=== PATIENT | female | born 1930 | race Caucasian/White ===

== ENCOUNTER 2016-11-30 07:29 | Emergency (ER) | payer MEDICARE, OTHER ==
[~2016-11-30 07:29] MED LIST: ACET500CAP PO; ASAB PO; ASACOL PO; BENTYL10 PO; COMP10B PO; CONSTULOSE PO; COZ50 PO; CRESTOR10 PO; ENULOSE PO; FERROUS SULFATE PO; FLECAINIDE50 MG PO; HALF81 PO; IMBRU140C PO; IMDUR30 PO; L20 PO; LACT30UDL PO; LACTULOSE; LACTULOSE PO; LIBRAX PO; LIPITOR10 PO; LOP25 PO; MCZ125 PO; METPAKSF PO; MICARDIS20 MG PO; MIRALAXPKT PO; NITROBID PO; NITROBID2 PO; NITROSTAT0.4 MG SL; PLAVIX PO; POTASSIUM PO; PRILO PO; PRILOSEC OTC20 MG PO; PROTONIX PO; PROVHFA INH; RAN500 PO; SLO FE PO; SLOW FE160 MG PO; SLOW IRON OR; TAMBO50 PO; VALTREX1 GM PO; ZOFRAN8 PO; [UNRECOGNIZED DRUG - OTHER]; [UNRECOGNIZED DRUG - OTHER]; [UNRECOGNIZED DRUG - OTHER] PO
[2016-11-30 08:22] LABS: BASOPHILS 0.1 %; BASOPHILS ABSOLUTE 0.03 10/3/uL (0.0-0.16); EOSINOPHILS 0.2 %; EOSINOPHILS ABSOLUTE 0.05 10/3/uL (0.0-0.53); HEMOGLOBIN 9.2 g/dL (12.0-16.0); IMMATURE GRANULOCYTES 0.2 %; LYMPHOCYTES ABSOLUTE 22.39 10/3/uL (0.67-4.30); MEAN CORPUS HGB CONC 32.4 g/dL (32.0-36.0); MEAN CORPUSCULAR HEMOGLOB 28.9 pg (26.0-34.0); MEAN PLATELET VOLUME 10.8 fL (9.2-13.0); MONOCYTES 1.4 %; MONOCYTES ABSOLUTE 0.33 10/3/uL (0.21-1.20); NEUTROPHILS 6.1 %; NEUTROPHILS ABSOLUTE 1.49 10/3/uL (2.02-8.40); PLATELET COUNT 88 10/3/uL (150-400); RBC DISTRIBUTION WIDTH 15.6 % (12.0-16.0); RED CELL COUNT 3.18 10/6/uL (4.0-5.6)
[2016-11-30 08:24] LABS: ER CBC TAT 0 Hrs 07 Mins; HEMATOCRIT 28.4 % (36.0-48.0); IMMATURE GRANULOCYTES ABSOLUTE 0.05 10/3/uL (0.0-0.11); MANUAL DIFF NO %; MEAN CORPUSCULAR VOLUME 89.3 fL (80-100); WHITE BLOOD CELLS 24.3 10/3/uL (4.5-10.5)
[2016-11-30 08:32] LABS: INTERNATIONAL NORMAL RATI 1.2 UNITS (-); PARTIAL THROMBO TIME 37.6 SEC (22.5-37.2); PROTIME (NOT ORD) 15.4 SEC (12.0-14.5)
[2016-11-30 08:36] LABS: CALCIUM, SERUM 7.8 MG/DL (8.5-10.4); CHEST PAIN PROFILE TAT 0 Hrs 19 Mins; CHLORIDE, SERUM 107 MMOL/L (96-112); CO2 (CARBON DIOXIDE) 29 MMOL/L (24-34); GFR AFRICAN AMERICAN 33 ML/MIN (>=60); GFR NON AFRICAN AMERICAN 29 ML/MIN (>=60); GLUCOSE, SERUM 79 MG/DL (60-99); POTASSIUM, SERUM 4.1 MMOL/L (3.5-5.3); TROPONIN I <0.02 NG/ML (<0.05)
[2016-11-30 08:39] LABS: BUN (BLOOD UREA NITROGEN) 20 MG/DL (6-23); SODIUM, SERUM 140 MMOL/L (135-148)
[2016-11-30 08:58] LABS: ER DIFF TAT 0 Hrs 41 Mins; LYMPHOCYTES 98 %; LYMPHOCYTES ABSOLUTE (CALC) 23.81 10/3/uL (0.67-4.30); MONOCYTES 1 %; MONOCYTES ABSOLUTE (CALC) 0.24 10/3/uL (0.21-1.20); NEUTROPHILS ABSOLUTE (CALC) 0.24 10/3/uL (2.02-8.40); PLATELET ESTIMATE DEC (ADEQUATE); SEGMENTED NEUTROPHIL (0) 1 %; TOTAL NUCLEATED CELLS 100
[2016-11-30 09:00] LABS: ACANTHOCYTES FEW (3-10/OIF)
[2016-11-30 09:01] LABS: OVALOCYTES 1+ (3-10/OIF) (0-2/OIF)
[2016-11-30 09:07] LABS: SMUDGE CELLS FEW
[2016-12-01] MEDS ORDERED: LIBRAX PO (14:28)
[2016-12-01] MEDS ORDERED: FLECAINIDE50 MG PO (14:28)
[2016-12-01] MEDS ORDERED: L20 PO (14:29)
[2016-12-01] MEDS ORDERED: IMDUR30 PO (14:29)
[2016-12-01] MEDS ORDERED: IMBRU140C PO (14:29)
[2016-12-01] MEDS ORDERED: LOP25 PO (14:30)
[2016-12-01] MEDS ORDERED: COZ50 PO (14:30)
[2016-12-01] MEDS ORDERED: METRONIDAZOLE 0.75% V (14:31)
[2016-12-01] MEDS ORDERED: PROTONIX PO (14:32)
[2016-12-01] MEDS ORDERED: ACET500CAP PO (14:34)
== END 2016-11-30 11:32 | disposition home or self-care (01) ==
LOC: ER 07:29
PROVIDERS: Emergency Medicine
DX: R07.89 Other chest pain (principal); C94.80 Other specified leukemias not having achieved remission; L89.152 Pressure ulcer of sacral region, stage 2; I25.2 Old myocardial infarction; I48.91 Unspecified atrial fibrillation; I12.9 Hypertensive chronic kidney disease with stage 1 through stage 4 chronic kidney disease, or unspecified chronic kidney disease; N18.9 Chronic kidney disease, unspecified; Z95.5 Presence of coronary angioplasty implant and graft; Z88.8 Allergy status to other drugs, medicaments and biological substances; Z91.041 Radiographic dye allergy status; Z91.013 Allergy to seafood; Z88.5 Allergy status to narcotic agent; Z88.6 Allergy status to analgesic agent; Z88.1 Allergy status to other antibiotic agents; Z79.82 Long term (current) use of aspirin; Z79.899 Other long term (current) drug therapy
CPT/HCPCS: 71010; 80048; 83735; 84484; 85025; 85610; 85730; 93005; 99285; A9270-GY

== ENCOUNTER 2016-12-01 12:07 | Inpatient (IN) | payer MEDICARE, OTHER ==
--- NOTE | ~2016-12-01 | CN ---
Consultation Report [place] [address] [facility] [place]. [address] NAME: LORETTA DUVAL : 29 STATUS : DIS IN PAT#: [id number] AGE: 86 ADM/REG DATE : 12/01/16 MR#: [id number] REPORT SERV DATE: 12/09/16 DICTATED BY: CHEO GANDHI DATE: 12/09/16 REPORT STATUS : Draft TRANSCRIBED BY: MODAsuncion DATE: 12/09/16 CONSULTATION DATE OF CONSULTATION: CVD PHYSICIAN: Rich Waldrop M.D. REASON FOR CONSULTATION: Mrs. Loretta Duval is an 86-year-old female who is referred for treatment of atrial fibrillation. HISTORY OF PRESENT ILLNESS: Mrs. Loretta Duval was just seen last week and was discharged on 12/06/2016 status post left hip fracture with total hip replacement. Postoperatively, she developed UTI and now sepsis. She is admitted with encephalopathy with a new-onset atrial fibrillation. REVIEW OF SYSTEMS: Unable to be obtained. PAST MEDICAL HISTORY: 1. CAD with previous history of stents to the right coronary artery 05/10 with medical management since then. 2. Remote history of paroxysmal atrial fibrillation. 3. CLL with previous chemotherapy. 4. Chronic kidney disease, stage 3. 5. Hypertension, long-standing. 6. Breast cancer, status post bilateral mastectomies. SOCIAL HISTORY: She has a strong family support. She currently resides in [facility]. Her code status is DNR. PHYSICAL EXAMINATION: GENERAL: She currently is unresponsive, but breathing on her own. LUNGS: Bilateral breath sounds are heard. HEART: Sounds are distant with S1, S2 normal. No rub is heard. ABDOMEN: Bowel sounds are present but decreased. EXTREMITIES: Warm. LABORATORY EVALUATION: Troponin is mildly elevated at 0.08. BNP is mildly elevated to 246 and creatinine is improving at 1.4. ASSESSMENT: 1. Atrial fibrillation with rapid ventricular response. At this time, we will seek amiodarone protocol. We will maintain noninvasive approach. 2. Coronary artery disease at the present time. No evidence of ongoing ischemia. We will Consultation Report [address]. [address] NAME: LORETTA DUVAL : 29 STATUS : DIS IN PAT#: [id number] AGE: 86 ADM/REG DATE : 12/01/16 MR#: [id number] REPORT SERV DATE: 12/09/16 DICTATED BY: CHEO GANDHI DATE: 12/09/16 REPORT STATUS : Draft TRANSCRIBED BY: MODL DATE: 12/09/16 continue to treat medically. GG/TRACY Cheo Gandhi M.D. / [id number] CC: Jacqueline Orona M.D.
--- NOTE | ~2016-12-01 | CN ---
Consultation Report [facility] [address] [place]. [address] NAME: LORETTA CAO : 29 STATUS : ADM IN PAT#: [id number] AGE: 86 ADM/REG DATE : 12/01/16 MR#: [id number] REPORT SERV DATE: 12/02/16 DICTATED BY: SRAVANTHI SCALES DATE: 12/02/16 REPORT STATUS : Draft TRANSCRIBED BY: MODL DATE: 12/02/16 CARDIOLOGY CONSULTATION DATE OF CONSULTATION: 12/02/2016 REASON FOR CONSULTATION: Preoperative cardiovascular risk assessment. HISTORY OF PRESENT ILLNESS: The patient is an 86-year-old female with known coronary artery disease with remote complex percutaneous intervention in the right coronary artery involving multiple stents in April 2014. History of moderate to severe left circumflex disease which has been managed medically since that time. The patient with recent fall in her intermediate facility with complaints of left lower extremity pain. Imaging demonstrated hip fracture. The patient is currently being prepared for surgical treatment for hip fracture. The patient currently denies chest pain. Previous notes described the patient is combative, confused, and agitated. At the time of my interview, the patient is alert. She is oriented to person, place, and situation. She is able to recall her stone hand's name. She has a recollection of having previous cardiac stents. She currently denies chest pain. She was brought into the emergency department this week with complaints of chest discomfort. Somewhat atypical in description from ER records. EKG and serial cardiac enzymes were unremarkable. She reportedly has had no recurrent chest pain since that time. PAST MEDICAL HISTORY: 1. Coronary artery disease with a previous stents to the right coronary artery in 04/2014 with flow limiting disease within the left circumflex coronary artery which has been managed medically since that time. 2. Remote history of paroxysmal atrial fibrillation. 3. Chronic lymphocytic leukemia with previous chemotherapy. Now on oral agents. 4. Chronic kidney disease stage 3. 5. Hypertension. 6. Gastroesophageal reflux disease. 7. Breast carcinoma, status post bilateral mastectomies. 8. History of anemia. 9. Macular degeneration. PAST SURGICAL HISTORY: Bilateral mastectomies, appendectomy, port catheter placement, and hysterectomy. SOCIAL HISTORY: Denies previous tobacco, alcohol, or illicit drug use. Both she and her . Currently reside in a intermediate facility. FAMILY HISTORY: Noncontributory. REVIEW OF SYSTEMS: Negative for all organ systems except per the history of present illness. Consultation Report [place] [id number] [place]. [address] NAME: LORETTA CAO : 29 STATUS : ADM IN PAT#: [id number] AGE: 86 ADM/REG DATE : 12/01/16 MR#: [id number] REPORT SERV DATE: 12/02/16 DICTATED BY: SRAVANTHI SCALES DATE: 12/02/16 REPORT STATUS : Draft TRANSCRIBED BY: TRACY DATE: 12/02/16 PHYSICAL EXAMINATION: VITALS: Blood pressure ranging from 144/58 to 162/67 today, pulse ranging 67 to 84, respirations 12 and unlabored, saturating 96% on room air, and weight 49 kg. GENERAL: Elderly chronically ill-appearing female, in no acute distress. HEENT: Ecchymoses to the left face from the lateral superior orbital rim to the maxilla. NECK: Supple, no JVD or bruit, normal carotid upstroke bilaterally, no thyromegaly. CHEST: Bilateral well-healed mastectomy scars. LUNGS: Clear to auscultation and percussion. No wheezes, rales or rhonchi. No use of accessory muscles. CARDIOLOGY: Regular rhythm, normal S1, S2, no thrill, no rubs or gallops, normal PMI. There is grade 2/6 early peaking systolic murmur appreciated best in right upper sternal border. ABDOMEN: Bowel sounds positive, soft, nontender, and nondistended. No masses or aortic bruits. No hepatosplenomegaly or hepatojugular reflux. EXTREMITIES: No edema. Normal pulses. No clubbing or cyanosis. SKIN: Warm and dry, no significant rash. NEUROLOGIC: oriented to time, person, place, and situation. IMAGING: EKG: Sinus rhythm, normal EKG. LABORATORIES: No recent troponins negative x3 sets. WBC 19.8, hemoglobin 8.8, hematocrit 27.9, platelets 77,000. INR 1.3. Sodium 141, potassium 4.1, chloride 107, BUN 20, creatinine 1.45, with a glomerular filtration rate of 37 mL/minute. Thyroid stimulating hormone is normal. IMPRESSION: Preoperative cardiovascular risk assessment - the patient is an at least moderate risk for cardiovascular complication during her planned upcoming surgical procedure. The patient has no readily modifiable risk. She is currently hemodynamically stable. No evidence of recent myocardial infarction by enzymes or EKG. Okay to proceed with surgery. We would recommend monitoring of EKG in the sparkle and postoperative period for ischemic changes and treatment as necessary with beta zheng and nitrates if necessary. Thank you for the opportunity to see the patient in consultation. We will follow the patient with you postoperatively until stable. CSL/MODAsuncion Nhung Scales M.D. / [id number] Consultation Report [address] [address] NAME: LORETTA CAO : 29 STATUS : ADM IN PAT#: [id number] AGE: 86 ADM/REG DATE : 12/01/16 MR#: [id number] REPORT SERV DATE: 12/02/16 DICTATED BY: SRAVANTHI SCALES DATE: 12/02/16 REPORT STATUS : Draft TRANSCRIBED BY: TRACY DATE: 12/02/16 CC: MD Kylie Briseno M.D.
--- NOTE | ~2016-12-01 | DS ---
Discharge Summary [facility] [address] [place]. [address] NAME: LORETTA CAO : 29 STATUS : DIS IN PAT#: [id number] AGE: 86 ADM/REG DATE : 12/01/16 MR#: [id number] REPORT SERV DATE: 12/08/16 DICTATED BY: RAÚL SIMEON DATE: 12/07/16 REPORT STATUS : Draft TRANSCRIBED BY: MODL DATE: 12/07/16 ADMISSION DATE: 12/01/2016 DISCHARGE DATE: 12/06/2016 REASON FOR ADMISSION: This was an 86-year-old female, who had come in with a fall and complaint of leg pain. In the emergency room, x-ray would show a left Garden 3 femoral neck fracture. DISCHARGE DIAGNOSES: 1. Left hip fracture, status post total hip arthroplasty. 2. Acute blood loss anemia, status post surgery. 3. Urinary tract infection. 4. Chronic kidney disease, 4. 5. Encephalopathy. 6. Chronic lymphocytic leukemia, chronic anemia, and chronic thrombocytopenia. 7. Mildly elevated troponin, type 2 demand ischemia secondary to anemia. HOSPITAL COURSE: 1. Left hip fracture. The patient would have surgery performed by Dr. Hardik Turcios III on 12/02/2016 and had successful surgery, she was started on Eliquis postoperatively. The patient has chronic thrombocytopenia along with chronic lymphocytic leukemia and anemia with baseline platelet count anywhere from 80,000 to 100,000 after surgery with her platelets running in the 70-80,000 range and on Eliquis, she did have continued surgical site oozing of blood and did have some acute blood loss anemia. Her hemoglobin got down to 6.0, she was given 2 units of packed red cells and it came up to 9.5, Eliquis was held x2 doses and hemoglobin was stabilized at 9.5 to 9.4, day of discharge and she will be restarted on Eliquis at facility. 2. Urinary tract infection. The patient was found to have urinary tract infection, urine culture would grow out Escherichia coli and she was placed on amoxicillin. She received about 5 days worth, so she will need about 2 more days to complete her 7 day course. 3. Chronic kidney disease 4. Creatinine was stable, kidney function stable while here at the hospital. Creatinine was 1.6 on admission and 1.25 at discharge. 4. Encephalopathy, likely secondary to urinary tract infection, resolved. 5. Chronic lymphocytic leukemia/anemia/thrombocytopenia. The patient's platelet count at 101,000 at discharge, white blood cell count, which ranges in the mid 20,000 range at baseline was 28.5, at discharge. The patient had some complaints of chest pain leading up to admission, so she was seen by Cardiology, the EKG was obtained and 0 troponins. EKG, which showed no evidence of ischemic changes and the patient had no chest pain while here at the hospital. She did have a bumped troponin mildly at 0.11, when she was anemic postoperatively with a hemoglobin of 6.0, it was determined that this was type 2 demand ischemia secondary to anemia and no further workup was done. DISCHARGE CONDITION: Stable. DISCHARGE MEDICATIONS: Discharge Summary [address] [address] NAME: LORETTA CAO : 29 STATUS : DIS IN PAT#: [id number] AGE: 86 ADM/REG DATE : 12/01/16 MR#: [id number] REPORT SERV DATE: 12/08/16 DICTATED BY: RAÚL SIMEON DATE: 12/07/16 REPORT STATUS : Draft TRANSCRIBED BY: TRACY DATE: 12/07/16 1. Librax 1 capsule p.o. b.i.d. 2. Flecainide 50 mg p.o. b.i.d. 3. Lasix 10 mg p.o. daily. 4. Imbruvica 280 mg p.o. daily. 5. Imdur 30 mg daily. 6. Cozaar 50 mg daily. 7. Lopressor 12.5 mg p.o. b.i.d. 8. Protonix 40 mg p.o. daily. 9. Eliquis 2.5 mg p.o. daily. 10.Amoxicillin 500 mg p.o. t.i.d. x2 more days. DISCHARGE PLAN: The patient is discharged to alf facility for rehab and then follow up with primary care, Dr. Kylie Tobin, after rehab. CONRAD/JAZMINL Raúl Simeon APN / [id number] CC: Jacqueline Orona M.D. Thomas Brown III, M.D. C. Samuel Ledford, M.D.
--- NOTE | ~2016-12-01 | HP ---
History And Physical [place] [id number] [facility] [place]. [address] NAME: LORETTA CAO : 29 STATUS : ADM IN PAT#: [id number] AGE: 86 ADM/REG DATE : 12/01/16 MR#: [id number] REPORT SERV DATE: 12/01/16 DICTATED BY: DAYRON NORIEGA DATE: 12/01/16 REPORT STATUS : Draft TRANSCRIBED BY: MODL DATE: 12/01/16 DATE OF ADMISSION: 12/01/2016 IDENTIFYING DATA: An 86-year-old white female, whose PCP is Dr. Kylie Tobin; seismic interpreter, Dr. Waldrop; medical oncologist, Dr. Bharathi Galindo; GI, Dr. David Kelley; and urologist, Dr. Thomas. CHIEF COMPLAINT: Fall and leg pain. HISTORY OF PRESENT ILLNESS: This history of present illness was obtained by talking with the patient and her and there are also a nephew and his here at the bedside and I spoke with the ER provider and I reviewed JoMaJa and Vedicis and the current ER paper chart. 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 Her is in a skilled facility, recovering from hip fracture and the patient herself was moved to the same fci/rehab at [facility] last week on 11/27/2016. She was brought to the emergency room here last night because she states she had some chest pain. She states they did an evaluation in the emergency room here and released her to go home. She states she had not been having any other chest pains. She awoke at 3 a.m., tried to get out of bed, reaching for her wheelchair to go to the bathroom, fell, hit the left side of her head and her left hip. and the patient called out. They report staff came in, got her up, got her into bed. She was brought to the emergency room later in the day around noon. The patient was noted to have a left hip fracture and a lot of bruising. We were asked to admit her to the hospital. REVIEW OF SYSTEMS: She states a Lemus catheter has recently been placed by urologist, Dr. Thomas, because she could not empty her bladder. She has some bilateral leg edema that has been recent and she has been scratching it a lot and states that it got to the point where it bled. She has had some vague abdominal pain that is intermittent, but improved by her chronic use of Librax. She has diarrhea periodically which is chronic for her. She has some occasional nausea. She states she recently had some black stools. She denies fever, sore throat, cough, shortness of breath, rectal bleeding, or anorexia. ALLERGIES: SHE CLAIMS ALLERGIES TO ZANTAC, TAGAMET, IODINE, SHELLFISH, MORPHINE, CODEINE, ASPIRIN, MESALAMINE, INDOMETHACIN, PIROXICAM, CEFIXIME, MEPERIDINE, AND PLAVIX. PAST MEDICAL HISTORY: She denies any history of diabetes, asthma, COPD, stroke, seizure, biliary tract disease, or liver disease. She has a known history of CLL for which she had previous chemo through a port and now she has been taking chronic oral Imbruvica. She also has a history of coronary disease with previous heart attack and then a PCI of the right coronary artery with 3 bare metal stents History And Physical [address] [address] NAME: LORETTA CAO : 29 STATUS : ADM IN PAT#: [id number] AGE: 86 ADM/REG DATE : 12/01/16 MR#: [id number] REPORT SERV DATE: 12/01/16 DICTATED BY: DAYRON NORIEGA DATE: 12/01/16 REPORT STATUS : Draft TRANSCRIBED BY: TRACY DATE: 12/01/16 in 2013, complicated by temporary bradycardia, requiring a pacemaker. She has paroxysmal atrial fibrillation as a chart history. She has stage 3 chronic kidney disease, hypertension, history of Crohn's and reflux, previous left-sided breast cancer and questionable right side treated with mastectomies, she has had a goiter, she has had a history of iron deficiency anemia in her past. She has had a retinal bleed in 2003 and macular degeneration. She has diminished hearing capacity. MEDICATIONS: Tylenol p.r.n.; Librax scheduled twice a day, morning and evening; flecainide 50 mg b.i.d.; Lasix 10 mg every morning; Imbruvica 280 mg pre-breakfast; Imdur 30 mg daily; Cozaar 50 mg daily; metoprolol 12.5 mg b.i.d.; Protonix 40 mg b.i.d.; and metronidazole intravaginal cream at bedtime. PAST SURGICAL HISTORY: She has had bilateral mastectomies, LEONEL-BSO, appendectomy, port placement, left ganglion cyst removal, and then the stent and temporary pacemaker. SOCIAL HISTORY: She does not use tobacco or alcohol. She is . She resides currently with her at [facility]. FAMILY HISTORY: Mother had pancreatic cancer. Father had a stroke. DIAGNOSTIC DATA: Chest x-ray reveals a port in the right side of the chest. Lung luo are grossly clear. Heart size normal per my interpretation. EKG done today at 1430 reveals normal sinus rhythm and a normal EKG per my interpretation. Sodium 137, potassium 4, chloride 105, CO2 is 27, BUN 22, creatinine 1.62, glucose 87, calcium 7.9. Last night, her magnesium was 2.4 when she came here. Troponin last night less than 0.02. Lactic acid today is 0.7. White count today is 25.7, hemoglobin 9.3, platelets are 88,000, and her white blood count typically runs anywhere from 24 to over 100,000. Today's ProTime 16.3, INR 1.3, PTT is 32.6. Urinalysis obtained from the indwelling catheter: Hazy, specific gravity 1.018, large leukocyte esterase, positive nitrite, 10 red cells, 163 white blood cells, a few white blood cell clumps, and many bacteria. PHYSICAL EXAMINATION: VITAL SIGNS: Temperature is 98, pulse 70, respirations 24, blood pressure 160/60, O2 saturation is 97% on room air. GENERAL: A well-developed older female, who appears in no acute distress. HEENT: The head shows bruising over the left eye and below the left eye and on the left maxillary and cheek area. Pupils equal, round, and reactive to light. Extraocular motions are intact. No scleral icterus noted. Ears, she has diminished hearing bilaterally. No inflammatory changes noted to the ears externally. Nose, noninflamed externally. Septum midline. Nares patent. Mouth, moist. Good gag. No redness of the throat, gums, or lips. History And Physical [address] [address] NAME: LORETTA CAO : 29 STATUS : ADM IN PAT#: [id number] AGE: 86 ADM/REG DATE : 12/01/16 MR#: [id number] REPORT SERV DATE: 12/01/16 DICTATED BY: DAYRON NORIEGA DATE: 12/01/16 REPORT STATUS : Draft TRANSCRIBED BY: TRACY DATE: 12/01/16 NECK: Supple. No lymph node or thyroid enlargement. The carotids have good pulses. There is a left-sided carotid bruit. LUNGS: Clear. Good air flow. No wheezes, no rhonchi. Normal respiratory effort. HEART: Regular rate and rhythm without murmur, gallop, click, or rub. ABDOMEN: Bowel sounds positive. Soft, nondistended, nontender. No masses. No organomegaly. EXTREMITIES: Warm. No cyanosis, no clubbing. Her left lower extremity is shortened and externally rotated. She has tenderness to palpation along the edematous portion of her calves bilaterally, but there is at least 2+ edema, but no inflammation of it. She does have some scabbed areas where she did scratch recently. NEUROLOGIC: She is alert. She is oriented. She is quite talkative. She is quite pleasant. Her motor strength is 2/5 in her hands, 2/5 in her right leg; left leg was not checked. Cranial nerves II through XII only notable for the diminished hearing. ASSESSMENT: 1. Fall with left hip fracture early this morning. 2. Chronic lymphocytic leukemia with chronic leukocytosis, anemia, and thrombocytopenia. 3. Stage 4 chronic kidney disease. 4. Possible catheter associated urinary tract infection. 5. Report of black stools, but these have not been corroborated and the degree of her anemia is fairly stable at this time, but we will need to evaluate this further. 6. Left-sided carotid bruit. 7. Previous heart attack in 2013, treated with 3 bare metal stents to the right coronary artery and with a temporary pacemaker needed at that time. 8. Paroxysmal atrial fibrillation. 9. History of hypertension. 10.History of Crohn's disease, but no real significant manifestations for some time except tendency for diarrhea and cramps. 11.History of prior breast cancer resected. 12.History of goiter. 13.History of retinal bleed in 2003 with macular degeneration. PLAN: 1. Admitted to the orthopedic floor. 2. Check stool guaiac and follow up hemoglobin. 3. She has specifically asked that her seismic interpreter and her medical oncologist see her prior to going through with orthopedic surgery. Depending on how you roller stitcher orthopedic surgery, her revised cardiac risk index varies anywhere from a high of 6.6 if you consider that a high-risk surgery, but if you do not consider it high risk, then it is as low as 0.9%. We will also ask her medical oncologist to see her preop because she really wants to see Dr. Galindo before she considers her decision about the surgical procedure. We will also check her stool guaiacs as mentioned. We will also put her on some empiric antibiotics and follow up her urine culture. RSG/MODL History And Physical [address] [address] NAME: LORETTA CAO : 29 STATUS : ADM IN PAT#: [id number] AGE: 86 ADM/REG DATE : 12/01/16 MR#: [id number] REPORT SERV DATE: 12/01/16 DICTATED BY: DAYRON NORIEGA DATE: 12/01/16 REPORT STATUS : Draft TRANSCRIBED BY: TRACY DATE: 12/01/16 Dayron Noriega M.D. / [id number] CC: MD Kylie Briseno M.D. Jeffrey K. Mullins, MD James Hoback Jr., M.D. Darrell Johnson, M.D. Vijaykurmar Patel, M.D. [facility]
--- NOTE | ~2016-12-01 | CN ---
Consultation Report [address] [address] NAME: LORETTA CAO : 29 STATUS : ADM IN PAT#: [id number] AGE: 86 ADM/REG DATE : 12/01/16 MR#: [id number] REPORT SERV DATE: 12/01/16 DICTATED BY: HARDIK TURCIOS III DATE: 12/01/16 REPORT STATUS : Draft TRANSCRIBED BY: MODL DATE: 12/01/16 CONSULTATION DATE OF CONSULTATION: 12/01/2016 SUPERVISOR SCREEN PRINTING: Hardik Turcios M.D. CHIEF COMPLAINT: Left hip pain. HISTORY: The patient is an 86-year-old elderly white female, who resides in [facility]. When she was getting up today losing her balance, landing on her left hip. She was brought to the emergency room here at [facility] where x-rays reveal a displaced left femoral neck fracture. She is admitted to the Hospitalist Service with her left hip fracture and Orthopedic consultation is obtained for definitive treatment of her left hip fracture. PAST MEDICAL HISTORY: Significant for high blood pressure and cardiac stents and CLL. PHYSICAL EXAMINATION: GENERAL: She is alert and orient x3. VITAL SIGNS: Stable. HEENT: Normocephalic, atraumatic. Pupils equal, round, and reactive to light and accommodation. Extraocular muscles are intact. NECK: Supple. CHEST: Clear. ABDOMEN: Benign, soft, nontender. Positive bowel sounds. ORTHOPEDIC: Examination reveals marked tenderness to her left hip. She has some shortening in external rotation. She has pain with minimal attempted internal and external rotation of her left lower extremity. DIAGNOSTIC DATA: X-rays reveal a Garden IV displaced left femoral neck fracture. PLAN: Admission for a left hip arthroplasty. I appreciate this consultation. We will proceed with surgery tomorrow on 12/02/2016. TB/JAZMINL Hardik Turcios III, M.D. / [id number] Consultation Report [address] [address] NAME: LORETTA CAO DANY : 29 STATUS : ADM IN PAT#: [id number] AGE: 86 ADM/REG DATE : 12/01/16 MR#: [id number] REPORT SERV DATE: 12/01/16 DICTATED BY: HARDIK TURCIOS III DATE: 12/01/16 REPORT STATUS : Draft TRANSCRIBED BY: TRACY DATE: 12/01/16 CC: MD Kylie Briseno M.D.
--- NOTE | ~2016-12-01 | OP ---
Record Of Operation [facility] [address] [place]. [address] NAME: LORETTA CAO : 29 STATUS : ADM IN PAT#: [id number] AGE: 86 ADM/REG DATE : 12/01/16 MR#: [id number] REPORT SERV DATE: 12/02/16 DICTATED BY: HARDIK TURCIOS III DATE: 12/02/16 REPORT STATUS : Draft TRANSCRIBED BY: MODL DATE: 12/02/16 DATE OF PROCEDURE: 12/02/2016 PREOPERATIVE DIAGNOSIS: Garden IV left femoral neck fracture. POSTOPERATIVE DIAGNOSIS: Garden IV left femoral neck fracture. SURGICAL PROCEDURE PERFORMED: Left hip arthroplasty using the DePuy system with a size 5 standard [place] stem, and 43 mm self-centering bipolar cup, with a 1.5, 28 mm head ball. SURGEON: Hardik Turcios M.D. MULTI LINE CLAIMS ADJUSTER: Walt. ANESTHESIA: General. ANTIBIOTICS: Ancef 2 g. COMPLICATIONS: None. CRYSTALLOID: 600 mL. ESTIMATED BLOOD LOSS: 300 mL. DRAINS: None. BLOOD PRODUCTS: One unit of packed RBCs. PROCEDURE IN DETAIL: The patient was brought to the operative room, placed on the table in supine position, and general anesthesia was induced. A 2 g Ancef was administered intravenously in the operating room. The patient was positioned in the right lateral decubitus position. Left hip and lower extremity were entirely prepped and draped in the usual sterile fashion. Assuring good anesthesia, and after time-out was called, an incision was made over the left hip directly in line with the femur around the greater trochanter for approximately 5 inches. The iliotibial band was incised, and self-retaining Charnley retractors were placed in the wound. Anterior one-third abductors were taken off their attachment to the greater trochanter with a Bovie electrocautery exposing the femoral neck, the capsule was incised and the blood was suctioned. The femoral head was extracted with a power corkscrew. This trialed to a size 43 mm outer diameter. This was trialed with the 43 mm trial, noted to have a good suction and fit. The hip was then flexed and externally rotated in a sterile pouch off the front table. A cookie cutter was used to enter the greater trochanter followed by a T-handled reamer to enter the femoral canal. A Lateralizer was next utilized followed by a 2, 3 reamer followed by a 4, 5 reamer. Serial broaches utilized starting with a 2 going up to size 5. Calcar planer was utilized. Trial reduction was carried out with a 1.5, 28 mm head ball and a 43 mm self-centering bipolar cup. Good range of motion and stability was noted. The hip was then dislocated again and trial broach Record Of Operation [address] [address] NAME: LORETTA CAO : 29 STATUS : ADM IN PAT#: [id number] AGE: 86 ADM/REG DATE : 12/01/16 MR#: [id number] REPORT SERV DATE: 12/02/16 DICTATED BY: HARDIK TURCIOS III DATE: 12/02/16 REPORT STATUS : Draft TRANSCRIBED BY: TRACY DATE: 12/02/16 and cup was removed. The real size 5 standard porous-coated [place] stem was impacted with very nice fixation. A 1.5, 28 mm head ball was added to the Armenta taper trunnion stem and a 43 mm self-centering bipolar cup was attached as well. Hip was reduced, and again checked for good range of motion and stability throughout. Thorough irrigation was carried out throughout the procedure pulse lavage system. The anterior one-third abductors reattached to the greater trochanter #5 FiberWire x4, reinforced #1 Vicryl suture. A 60 mL of Marcaine hip solution was injected into the hip for postoperative pain control. The iliotibial band was repaired with interrupted [id number] #1 Vicryl suture. Subcutaneous tissue was closed with 2-0 Vicryl and skin was closed using mer. The patient tolerated the procedure well and brought to recovery in satisfactory condition. There were no intraoperative, postoperative, or anesthetic complications. All instrument, needle, sponge, and lap counts were correct. TB/TRACY Hardik Turcios III, M.D. / [id number] CC: MD Kylie Briseno M.D.
[2016-12-01 12:33] LABS: BASOPHILS 0.1 %; BASOPHILS ABSOLUTE 0.03 10/3/uL (0.0-0.16); EOSINOPHILS 0.1 %; EOSINOPHILS ABSOLUTE 0.03 10/3/uL (0.0-0.53); HEMATOCRIT 28.6 % (36.0-48.0); HEMOGLOBIN 9.3 g/dL (12.0-16.0); IMMATURE GRANULOCYTES 0.6 %; LYMPHOCYTES 86.3 %; LYMPHOCYTES ABSOLUTE 22.19 10/3/uL (0.67-4.30); MEAN CORPUS HGB CONC 32.5 g/dL (32.0-36.0); MEAN CORPUSCULAR HEMOGLOB 29.5 pg (26.0-34.0); MEAN CORPUSCULAR VOLUME 90.8 fL (80-100); MEAN PLATELET VOLUME 11.6 fL (9.2-13.0); MONOCYTES 1.5 %; MONOCYTES ABSOLUTE 0.38 10/3/uL (0.21-1.20); NEUTROPHILS 11.4 %; NEUTROPHILS ABSOLUTE 2.92 10/3/uL (2.02-8.40); PLATELET COUNT 88 10/3/uL (150-400); RBC DISTRIBUTION WIDTH 15.6 % (12.0-16.0); RED CELL COUNT 3.15 10/6/uL (4.0-5.6)
[2016-12-01 12:34] LABS: ER CBC TAT 0 Hrs 05 Mins; IMMATURE GRANULOCYTES ABSOLUTE 0.16 10/3/uL (0.0-0.11); MANUAL DIFF NO %; WHITE BLOOD CELLS 25.7 10/3/uL (4.5-10.5)
[2016-12-01 12:42] LABS: INTERNATIONAL NORMAL RATI 1.3 UNITS (-); PARTIAL THROMBO TIME 32.6 SEC (22.5-37.2); PROTIME (NOT ORD) 16.3 SEC (12.0-14.5)
[2016-12-01 12:44] LABS: BUN (BLOOD UREA NITROGEN) 22 MG/DL (6-23); CALCIUM, SERUM 7.9 MG/DL (8.5-10.4); CHLORIDE, SERUM 105 MMOL/L (96-112); CO2 (CARBON DIOXIDE) 27 MMOL/L (24-34); CREATININE 1.62 MG/DL (0.55-1.02); GFR AFRICAN AMERICAN 33 ML/MIN (>=60); GFR NON AFRICAN AMERICAN 28 ML/MIN (>=60); GLUCOSE, SERUM 87 MG/DL (60-99); SODIUM, SERUM 137 MMOL/L (135-148)
[2016-12-01 12:51] LABS: BAND NEUTROPHILS 1 %; ER DIFF TAT 0 Hrs 22 Mins; LYMPHOCYTES 85 %; LYMPHOCYTES ABSOLUTE (CALC) 21.85 10/3/uL (0.67-4.30); MONOCYTES 1 %; MONOCYTES ABSOLUTE (CALC) 0.26 10/3/uL (0.21-1.20); SEGMENTED NEUTROPHIL (0) 13 %; SMUDGE CELLS FEW; TOTAL NUCLEATED CELLS 100
[2016-12-01 12:52] LABS: GIANT PLATELET OCC; PLATELET ESTIMATE DEC (ADEQUATE); POIKILOCYTOSIS 1+ (5-10/OIF) (0-5/OIF)
[2016-12-01 13:50] LABS: ASCORBIC ACID (UR NOT ORDER) NEG (NEG); BILIRUBIN, URINE NEGATIVE (NEG); ER URINALYSIS TAT 0 Hrs 16 Mins; KETONE, URINE NEGATIVE (NEG); LEUKOCYTE ESTERASE(NOT OR LARGE (NEG); WBC (NOT ORDERED) (RFLEX) 163 (0-5)
[2016-12-01 13:51] LABS: NITRITE (URINE) POS (NEG)
[2016-12-01] MEDS ORDERED: LIBRAX PO (14:28)
[2016-12-01] MEDS ORDERED: FLECAINIDE50 MG PO (14:28)
[2016-12-01] MEDS ORDERED: L20 PO (14:29)
[2016-12-01] MEDS ORDERED: IMDUR30 PO (14:29)
[2016-12-01] MEDS ORDERED: IMBRU140C PO (14:29)
[2016-12-01] MEDS ORDERED: COZ50 PO (14:30)
[2016-12-01] MEDS ORDERED: LOP25 PO (14:30)
[2016-12-01] MEDS ORDERED: METRONIDAZOLE 0.75% V (14:31)
[2016-12-01] MEDS ORDERED: PROTONIX PO (14:32)
[2016-12-01] MEDS ORDERED: ACET500CAP PO (14:34)
[2016-12-01 14:52] LABS: LACTATE 0.7 MMOL/L (0.3-2.4)
[2016-12-01 19:16] LABS: ALBUMIN 2.4 G/DL (3.5-5.0); ALKALINE PHOSPHATASE 65 U/L (45-117); DIRECT BILIRUBIN 0.2 MG/DL (0.0-0.4); INDIRECT BILIRUBIN(NOT ORDER) 0.3 MG/DL (0.1-0.9); SGOT(AST) 22 U/L (5-40); SGPT(ALT) 8 U/L (5-65); TOTAL BILIRUBIN 0.5 MG/DL (0-1.2); TOTAL PROTEIN 4.9 G/DL (6.0-8.5); TROPONIN I <0.02 NG/ML (<0.05)
[2016-12-01 19:30] LABS: HEMATOCRIT 28.9 % (36.0-48.0); HEMOGLOBIN 9.4 g/dL (12.0-16.0)
[2016-12-02 04:48] LABS: HEMATOCRIT 27.9 % (36.0-48.0); HEMOGLOBIN 8.8 g/dL (12.0-16.0); MEAN CORPUS HGB CONC 31.5 g/dL (32.0-36.0); MEAN CORPUSCULAR HEMOGLOB 28.7 pg (26.0-34.0); MEAN CORPUSCULAR VOLUME 90.9 fL (80-100); MEAN PLATELET VOLUME 11.3 fL (9.2-13.0); PLATELET COUNT 77 10/3/uL (150-400); RBC DISTRIBUTION WIDTH 15.7 % (12.0-16.0); RED CELL COUNT 3.07 10/6/uL (4.0-5.6); WHITE BLOOD CELLS 19.8 10/3/uL (4.5-10.5)
[2016-12-02 04:50] LABS: MANUAL DIFF YES %
[2016-12-02 04:57] LABS: BUN (BLOOD UREA NITROGEN) 20 MG/DL (6-23); CALCIUM, SERUM 7.9 MG/DL (8.5-10.4); CHLORIDE, SERUM 107 MMOL/L (96-112); CO2 (CARBON DIOXIDE) 26 MMOL/L (24-34); CREATININE 1.45 MG/DL (0.55-1.02); GFR AFRICAN AMERICAN 37 ML/MIN (>=60); GFR NON AFRICAN AMERICAN 32 ML/MIN (>=60); GLUCOSE, SERUM 79 MG/DL (60-99); POTASSIUM, SERUM 4.1 MMOL/L (3.5-5.3); SODIUM, SERUM 141 MMOL/L (135-148)
[2016-12-02 05:00] LABS: INTERNATIONAL NORMAL RATI 1.3 UNITS (-); PROTIME (NOT ORD) 15.9 SEC (12.0-14.5)
[2016-12-02 05:15] LABS: LYMPHOCYTES 90 %; LYMPHOCYTES ABSOLUTE (CALC) 17.82 10/3/uL (0.67-4.30); MONOCYTES 1 %; NEUTROPHILS ABSOLUTE (CALC) 1.78 10/3/uL (2.02-8.40); PLATELET ESTIMATE DEC (ADEQUATE); RBC MORPHOLOGY NORM (NORMAL); SEGMENTED NEUTROPHIL (0) 9 %; TOTAL NUCLEATED CELLS 100
[2016-12-02 16:11] LABS: MEAN CORPUSCULAR VOLUME 90.6 fL (80-100); MEAN PLATELET VOLUME 11.9 fL (9.2-13.0); RBC DISTRIBUTION WIDTH 15.6 % (12.0-16.0)
[2016-12-02 16:12] LABS: HEMATOCRIT 32.6 % (36.0-48.0); HEMOGLOBIN 10.8 g/dL (12.0-16.0); MEAN CORPUS HGB CONC 33.1 g/dL (32.0-36.0); PLATELET COUNT 106 10/3/uL (150-400); WHITE BLOOD CELLS 50.5 10/3/uL (4.5-10.5)
[2016-12-02 16:15] LABS: MANUAL DIFF YES %
[2016-12-02 16:19] LABS: BUN (BLOOD UREA NITROGEN) 17 MG/DL (6-23); CALCIUM, SERUM 8.1 MG/DL (8.5-10.4); CHLORIDE, SERUM 107 MMOL/L (96-112); CO2 (CARBON DIOXIDE) 25 MMOL/L (24-34); GFR AFRICAN AMERICAN 39 ML/MIN (>=60); GFR NON AFRICAN AMERICAN 34 ML/MIN (>=60); GLUCOSE, SERUM 80 MG/DL (60-99); POTASSIUM, SERUM 4.2 MMOL/L (3.5-5.3); SODIUM, SERUM 140 MMOL/L (135-148)
[2016-12-02 16:24] LABS: LYMPHOCYTES 93 %; LYMPHOCYTES ABSOLUTE (CALC) 46.97 10/3/uL (0.67-4.30); MONOCYTES 3 %; MONOCYTES ABSOLUTE (CALC) 1.52 10/3/uL (0.21-1.20); NEUTROPHILS ABSOLUTE (CALC) 2.02 10/3/uL (2.02-8.40); PLATELET ESTIMATE SLT DEC (ADEQUATE); SEGMENTED NEUTROPHIL (0) 4 %; TOTAL NUCLEATED CELLS 100
[2016-12-02 16:25] LABS: ACANTHOCYTES FEW (3-10/OIF); ANISOCYTOSIS 1+ (5-10/OIF) (0-5/OIF); BURR CELLS 1+ (3-10/OIF) (0-2/OIF); SMUDGE CELLS MOD
[2016-12-02 18:55] LABS: PROCALCITONIN <0.05 ng/mL (<0.5)
[2016-12-03 04:59] LABS: MEAN CORPUS HGB CONC 33.2 g/dL (32.0-36.0); MEAN CORPUSCULAR HEMOGLOB 29.9 pg (26.0-34.0); MEAN PLATELET VOLUME 11.6 fL (9.2-13.0); PLATELET COUNT 84 10/3/uL (150-400); RBC DISTRIBUTION WIDTH 16.2 % (12.0-16.0)
[2016-12-03 05:04] LABS: HEMATOCRIT 25.3 % (36.0-48.0); HEMOGLOBIN 8.4 g/dL (12.0-16.0); RED CELL COUNT 2.81 10/6/uL (4.0-5.6); WHITE BLOOD CELLS 26.5 10/3/uL (4.5-10.5)
[2016-12-03 05:05] LABS: MANUAL DIFF YES %
[2016-12-03 05:10] LABS: INTERNATIONAL NORMAL RATI 1.4 UNITS (-); PROTIME (NOT ORD) 16.9 SEC (12.0-14.5)
[2016-12-03 05:22] LABS: CALCIUM, SERUM 7.6 MG/DL (8.5-10.4); CHLORIDE, SERUM 108 MMOL/L (96-112); CO2 (CARBON DIOXIDE) 25 MMOL/L (24-34); CREATININE 1.59 MG/DL (0.55-1.02); GFR AFRICAN AMERICAN 33 ML/MIN (>=60); GFR NON AFRICAN AMERICAN 29 ML/MIN (>=60); GLUCOSE, SERUM 84 MG/DL (60-99); SODIUM, SERUM 138 MMOL/L (135-148)
[2016-12-03 05:27] LABS: BUN (BLOOD UREA NITROGEN) 22 MG/DL (6-23); POTASSIUM, SERUM 5.1 MMOL/L (3.5-5.3)
[2016-12-03 07:16] LABS: LYMPHOCYTES 89 %; LYMPHOCYTES ABSOLUTE (CALC) 23.59 10/3/uL (0.67-4.30); MONOCYTES 1 %; MONOCYTES ABSOLUTE (CALC) 0.27 10/3/uL (0.21-1.20); NEUTROPHILS ABSOLUTE (CALC) 2.65 10/3/uL (2.02-8.40); SEGMENTED NEUTROPHIL (0) 10 %; TOTAL NUCLEATED CELLS 100
[2016-12-03 07:17] LABS: PLATELET ESTIMATE DEC (ADEQUATE); RBC MORPHOLOGY NORM (NORMAL); REACTIVE LYMPHS FEW (3-5%) (0-5%)
[2016-12-04 04:37] LABS: MEAN CORPUS HGB CONC 32.8 g/dL (32.0-36.0); MEAN CORPUSCULAR HEMOGLOB 29.6 pg (26.0-34.0); MEAN CORPUSCULAR VOLUME 90.1 fL (80-100); MEAN PLATELET VOLUME 10.8 fL (9.2-13.0); PLATELET COUNT 69 10/3/uL (150-400); RBC DISTRIBUTION WIDTH 15.6 % (12.0-16.0); WHITE BLOOD CELLS 17.9 10/3/uL (4.5-10.5)
[2016-12-04 04:38] LABS: HEMATOCRIT 18.3 % (36.0-48.0); RED CELL COUNT 2.03 10/6/uL (4.0-5.6)
[2016-12-04 04:39] LABS: MANUAL DIFF YES %
[2016-12-04 04:46] LABS: INTERNATIONAL NORMAL RATI 2.1 UNITS (-)
[2016-12-04 04:50] LABS: PROTIME (NOT ORD) 23.7 SEC (12.0-14.5)
[2016-12-04 04:52] LABS: BUN (BLOOD UREA NITROGEN) 23 MG/DL (6-23); CALCIUM, SERUM 7.6 MG/DL (8.5-10.4); CHLORIDE, SERUM 105 MMOL/L (96-112); CO2 (CARBON DIOXIDE) 23 MMOL/L (24-34); CREATININE 1.51 MG/DL (0.55-1.02); GFR AFRICAN AMERICAN 36 ML/MIN (>=60); GFR NON AFRICAN AMERICAN 31 ML/MIN (>=60); GLUCOSE, SERUM 88 MG/DL (60-99); SODIUM, SERUM 137 MMOL/L (135-148)
[2016-12-04 04:54] LABS: TROPONIN I 0.11 NG/ML (<0.05)
[2016-12-04 06:04] LABS: ACANTHOCYTES OCC (0-2/OIF); BAND NEUTROPHILS 2 %; LYMPHOCYTES 83 %; LYMPHOCYTES ABSOLUTE (CALC) 14.86 10/3/uL (0.67-4.30); NEUTROPHILS ABSOLUTE (CALC) 3.04 10/3/uL (2.02-8.40); PLATELET ESTIMATE DEC (ADEQUATE); SEGMENTED NEUTROPHIL (0) 15 %; TOTAL NUCLEATED CELLS 100
[2016-12-04 11:11] LABS: HEMATOCRIT 28.6 % (36.0-48.0); HEMOGLOBIN 9.5 g/dL (12.0-16.0)
[2016-12-05 04:57] LABS: HEMATOCRIT 25.8 % (36.0-48.0); HEMOGLOBIN 9.1 g/dL (12.0-16.0); MEAN CORPUSCULAR HEMOGLOB 30.8 pg (26.0-34.0); MEAN CORPUSCULAR VOLUME 87.5 fL (80-100); MEAN PLATELET VOLUME 11.4 fL (9.2-13.0); PLATELET COUNT 72 10/3/uL (150-400); RBC DISTRIBUTION WIDTH 15.5 % (12.0-16.0); WHITE BLOOD CELLS 20.7 10/3/uL (4.5-10.5)
[2016-12-05 04:58] LABS: MANUAL DIFF YES %; MEAN CORPUS HGB CONC 35.3 g/dL (32.0-36.0); RED CELL COUNT 2.95 10/6/uL (4.0-5.6)
[2016-12-05 05:15] LABS: BUN (BLOOD UREA NITROGEN) 25 MG/DL (6-23); CALCIUM, SERUM 7.5 MG/DL (8.5-10.4); CHLORIDE, SERUM 104 MMOL/L (96-112); CO2 (CARBON DIOXIDE) 22 MMOL/L (24-34); CREATININE 1.35 MG/DL (0.55-1.02); GFR AFRICAN AMERICAN 41 ML/MIN (>=60); GFR NON AFRICAN AMERICAN 35 ML/MIN (>=60); GLUCOSE, SERUM 91 MG/DL (60-99); POTASSIUM, SERUM 4.2 MMOL/L (3.5-5.3); SODIUM, SERUM 136 MMOL/L (135-148)
[2016-12-05 05:21] LABS: TROPONIN I 0.09 NG/ML (<0.05)
[2016-12-05 06:18] LABS: LYMPHOCYTES 85 %; MONOCYTES 2 %; MONOCYTES ABSOLUTE (CALC) 0.41 10/3/uL (0.21-1.20); NEUTROPHILS ABSOLUTE (CALC) 2.69 10/3/uL (2.02-8.40); PLATELET ESTIMATE DEC (ADEQUATE); RBC MORPHOLOGY NORM (NORMAL); SEGMENTED NEUTROPHIL (0) 13 %; TOTAL NUCLEATED CELLS 100
[2016-12-05 17:53] LABS: HEMATOCRIT 27.8 % (36.0-48.0); HEMOGLOBIN 9.5 g/dL (12.0-16.0)
[2016-12-06 05:18] LABS: HEMOGLOBIN 9.4 g/dL (12.0-16.0); MEAN CORPUS HGB CONC 34.8 g/dL (32.0-36.0); MEAN CORPUSCULAR HEMOGLOB 30.7 pg (26.0-34.0); MEAN CORPUSCULAR VOLUME 88.2 fL (80-100); MEAN PLATELET VOLUME 11.4 fL (9.2-13.0); RBC DISTRIBUTION WIDTH 16.2 % (12.0-16.0); RED CELL COUNT 3.06 10/6/uL (4.0-5.6)
[2016-12-06 05:22] LABS: PLATELET COUNT 101 10/3/uL (150-400); WHITE BLOOD CELLS 28.5 10/3/uL (4.5-10.5)
[2016-12-06 05:24] LABS: INTERNATIONAL NORMAL RATI 1.7 UNITS (-)
[2016-12-06 05:29] LABS: BUN (BLOOD UREA NITROGEN) 24 MG/DL (6-23); CALCIUM, SERUM 7.9 MG/DL (8.5-10.4); CHLORIDE, SERUM 103 MMOL/L (96-112); CO2 (CARBON DIOXIDE) 21 MMOL/L (24-34); CREATININE 1.25 MG/DL (0.55-1.02); GFR AFRICAN AMERICAN 45 ML/MIN (>=60); GFR NON AFRICAN AMERICAN 39 ML/MIN (>=60); GLUCOSE, SERUM 77 MG/DL (60-99); POTASSIUM, SERUM 3.6 MMOL/L (3.5-5.3); SODIUM, SERUM 135 MMOL/L (135-148)
[2016-12-06 05:32] LABS: PROTIME (NOT ORD) 20.1 SEC (12.0-14.5)
[2016-12-06 05:34] LABS: MANUAL DIFF YES %
[2016-12-06 07:16] LABS: LYMPHOCYTES 68 %; LYMPHOCYTES ABSOLUTE (CALC) 19.38 10/3/uL (0.67-4.30); MONOCYTES 2 %; MONOCYTES ABSOLUTE (CALC) 0.57 10/3/uL (0.21-1.20); NEUTROPHILS ABSOLUTE (CALC) 8.55 10/3/uL (2.02-8.40); SEGMENTED NEUTROPHIL (0) 30 %; TOTAL NUCLEATED CELLS 100
[2016-12-06 07:17] LABS: ACANTHOCYTES OCC (0-2/OIF); PLATELET ESTIMATE SLT DEC (ADEQUATE); SMUDGE CELLS FEW
== END 2016-12-06 18:30 | DRG 469 ==
LOC: ER 12:07 → 3SO 15:09
PROVIDERS: Emergency Medicine; Hospitalist; Internal Medicine Cardiovascular Disease; Nurse Practitioner Gerontology; Orthopaedic Surgery
PROC: 0SRB02Z Replacement of Left Hip Joint with Metal on Polyethylene Synthetic Substitute, Open Approach (ICD-10-PCS; principal; 2016-12-01)
PROC: 30233N1 Transfusion of Nonautologous Red Blood Cells into Peripheral Vein, Percutaneous Approach (ICD-10-PCS; 2016-12-02)
DX: S72.002A Fracture of unspecified part of neck of left femur, initial encounter for closed fracture (principal); G93.40 Encephalopathy, unspecified; N18.4 Chronic kidney disease, stage 4 (severe); D69.6 Thrombocytopenia, unspecified; I24.8 Other forms of acute ischemic heart disease; N39.0 Urinary tract infection, site not specified; T83.518A Infection and inflammatory reaction due to other urinary catheter, initial encounter; D62 Acute posthemorrhagic anemia; Z88.5 Allergy status to narcotic agent; Z79.899 Other long term (current) drug therapy; Z91.040 Latex allergy status; Z91.013 Allergy to seafood; Z88.6 Allergy status to analgesic agent; Z85.6 Personal history of leukemia; Z90.710 Acquired absence of both cervix and uterus; Z90.49 Acquired absence of other specified parts of digestive tract; Z85.3 Personal history of malignant neoplasm of breast; Z90.13 Acquired absence of bilateral breasts and nipples; H35.30 Unspecified macular degeneration; Z80.8 Family history of malignant neoplasm of other organs or systems; Z82.3 Family history of stroke; I25.2 Old myocardial infarction; Z91.81 History of falling; W06.XXXA Fall from bed, initial encounter; Y92.122 Bedroom in nursing home as the place of occurrence of the external cause; Z88.8 Allergy status to other drugs, medicaments and biological substances; Z88.2 Allergy status to sulfonamides; Z92.21 Personal history of antineoplastic chemotherapy; I25.10 Atherosclerotic heart disease of native coronary artery without angina pectoris; Z98.890 Other specified postprocedural states; Z91.041 Radiographic dye allergy status; Z88.1 Allergy status to other antibiotic agents; Z79.82 Long term (current) use of aspirin; Z95.5 Presence of coronary angioplasty implant and graft; I12.9 Hypertensive chronic kidney disease with stage 1 through stage 4 chronic kidney disease, or unspecified chronic kidney disease
CPT/HCPCS: 36415; 70450; 70486; 71010; 72050; 72170; 73502-LT; 73552-LT; 80048; 80076; 81001; 83605; 83735; 83880; 84145; 84443; 84484; 85014; 85018; 85025; 85610; 85730; 86850; 86900; 86901; 86920; 87077; 87086; 87186; 87641; 88305; 88311; 90471; 90714; 93005; 96374; 97110-GO; 97110-GP; 97112-GO; 97162-GP; 97166-GO; 97530-GP; 97535-GO; 99285; A9270-GY; C1776; G8978-CN-GP; G8979-CL-GP; J1170; J1885; J1940; J2274; J2370; J2405; J2795; J3010; J3370; P9016

== ENCOUNTER 2016-12-08 04:36 | Inpatient (IN) | payer MEDICARE, OTHER ==
--- NOTE | ~2016-12-08 | IDS ---
Interim Discharge Summary [facility] [address] [place]. [address] NAME: LORETTA CAO : 29 STATUS : ADM IN PAT#: [id number] AGE: 86 ADM/REG DATE : 12/08/16 MR#: [id number] REPORT SERV DATE: 12/13/16 DICTATED BY: Lawrence LIGHT DATE: 12/13/16 REPORT STATUS : Draft TRANSCRIBED BY: MODL DATE: 12/13/16 ADMISSION DATE: 12/08/2016 DISCHARGE DATE: INTERIM SUMMARY DATE: 12/13. DIAGNOSES AT TIME OF INTERIM SUMMARY: Acute metabolic encephalopathy, resolving. Severe sepsis, present on admission, resolving. Healthcare-associated pneumonia, resolving. Severe protein-calorie malnutrition. Hypoxic respiratory failure, resolving. CLL. Chronic kidney disease stage 3. Atrial fibrillation with rapid ventricular response, now sinus rhythm on amiodarone infusion. CONSULTATIONS: Gastroenterology and Cardiology. PROCEDURES: Planned PEG tube. BRIEF HOSPITAL COURSE: 86-year-old female patient was admitted with respiratory failure and severe sepsis secondary to healthcare-associated pneumonia and recent fall with hip fracture requiring surgical repair. The patient was sent back from her facility with sepsis and pneumonia, treated with broad-spectrum antimicrobial therapy and O2 support. The patient ultimately did clinically respond. Vancomycin was discontinued when cultures remained negative. Because of her severe protein-calorie malnutrition, we did have a long discussion with the family regarding potential plans for feeding versus palliative care. They were not interested in palliation or a hospice at this time and are agreeable to PEG tube placement. Gastroenterology has been consulted and after correcting her underlying coagulopathy, the patient will undergo PEG tube placement this afternoon and tube feedings will be started as soon as it is safe, titrating to a goal rate to be set by Nutrition. Ultimate plan will be for her to return back to half-way facility for ongoing care. Of note, the patient is a DNR/DNI. Also complicating her hospital stay was atrial fibrillation with rapid ventricular response, initially treated with IV amiodarone. The patient is now in sinus rhythm. Once PEG tube has been placed, we will transition her amiodarone to oral therapy and continue for maintenance of sinus rhythm. The patient is not a candidate at this time for anticoagulation. Would recommend ongoing aspirin therapy, but nothing stronger due to her ongoing bleeding risk and significant frail state. Overall outlook is poor given her advanced age and comorbidities, family is aware. She is a DNR/DNI as mentioned above. The patient's hospitalist care will be provided by another member of the team starting 12/14/2016. [facility]/TRACY Lawrence Light M.D. / [id number] Interim Discharge Summary [address] [address] NAME: LORETTA CAO : 29 STATUS : ADM IN [facility]#: [id number] AGE: 86 ADM/REG DATE : 12/08/16 MR#: [id number] REPORT SERV DATE: 12/13/16 DICTATED BY: Lawrence LIGHT DATE: 12/13/16 REPORT STATUS : Draft TRANSCRIBED BY: MODL DATE: 12/13/16 CC: Jacqueline Gross M.D.
--- NOTE | ~2016-12-08 | CN ---
Consultation Report [facility] [address] [place]. [address] NAME: LORETTA DUVAL : 29 STATUS : ADM IN PAT#: [id number] AGE: 86 ADM/REG DATE : 12/08/16 MR#: [id number] REPORT SERV DATE: 12/12/16 DICTATED BY: JULIET ESPARZA DATE: 12/12/16 REPORT STATUS : Draft TRANSCRIBED BY: MODL DATE: 12/12/16 DATE OF CONSULTATION: 12/12/2016 REASON FOR CONSULTATION: Evaluation and management of the patient for PEG tube placement with a history of severe protein-calorie malnutrition. HISTORY OF PRESENT ILLNESS: Ms. Duval is an 86-year-old female patient, who is known to Dr. Jomar Kelley, who presented to [facility] on 12/08/2016 with a chief complaint of somnolence and shortness of breath with evidence of pneumonia. History of present illness has been obtained by speaking with Dr. Light as well as review of the patient's chart and [facility]. It appears that she was here recently on 12/01/2016 for left hip pain with her subsequently undergoing left hip replacement on 12/02/2016. She was subsequently discharged on 12/07/2016 back to [facility] of [place]. It appears that she became increasingly short of breath with hypoxia and confusion, thus prompting [facility] to send her in for further evaluation. She had had a fever up to 101.8. She was found to have pneumonia, hypoxic respiratory failure, sepsis, atrial fibrillation with RVR, on amiodarone, currently in sinus rhythm. No current blood thinners on board. She has a history of Crohn disease. Presently, she has a rectal tube in place with no obvious signs of bleeding. A CT on admission showed colonic ileus. She has an NG tube presently for medication administration. We have been asked to see her for consideration of PEG tube placement for severe protein- calorie malnutrition. PAST MEDICAL HISTORY: She has a pertinent past medical history for chronic lymphocytic leukemia whom she sees Dr. Bharathi Galindo for. Baseline white blood cell count by review of records is in between 17 and 28, chronic kidney disease stage 3, hypertension, coronary artery disease with stenting in the past, gastroesophageal reflux disorder, breast cancer, macular degeneration, paroxysmal atrial fibrillation, goiter, pericardial effusion, shingles, Crohn disease, urinary tract infections, splenomegaly, left hip pain with resultant hip replacement. SURGERIES: Bilateral mastectomy, left hip surgery, appendectomy, hysterectomy with oophorectomy, pacemaker, and wrist surgery. ALLERGIES: TO RANITIDINE, TAGAMET, IV CONTRAST, SHELLFISH, MORPHINE, CODEINE, ASPIRIN, MESALAMINE, PIROXICAM, DEMEROL, AND PLAVIX. SOCIAL HISTORY: She lives at [facility]. No alcohol, tobacco, or illicits. She is currently . FAMILY HISTORY: Mother with pancreatic cancer. HOME MEDICATIONS: On the chart. Amoxicillin, Librax, Colace, Eliquis, Tambocor, Florastor, Lasix, Imbruvica, Imdur, Cozaar, metoprolol, Protonix, multivitamin, Tylenol, Dulcolax suppository as needed, Marinol, Fleet Enema, milk of magnesia, and tramadol. Consultation Report [address] [address] NAME: LORETTA DUVAL : 29 STATUS : ADM IN [facility]#: [id number] AGE: 86 ADM/REG DATE : 12/08/16 MR#: [id number] REPORT SERV DATE: 12/12/16 DICTATED BY: JULIET ESPARZA DATE: 12/12/16 REPORT STATUS : Draft TRANSCRIBED BY: TRACY DATE: 12/12/16 REVIEW OF SYSTEMS: Somewhat limited secondary to the patient's altered mental status. PHYSICAL EXAMINATION: VITAL SIGNS: Currently temperature is 98.9, pulse is 72, respirations of 24, blood pressure 124/58. NEURO: Reveals an ill-appearing female, resting in bed. She awakens to name. Unable to keep her awake very long. She is unable to answer any of my questions. GENERAL: She is in no acute distress. HEAD, EARS, EYES, NOSE, AND THROAT: Anicteric. Pupils are equal, round, and reactive to light and accommodation. Normocephalic and atraumatic. NECK: No JVD. No palpable nodes. LUNGS: She has rhonchi in all luo with shallow inspiratory effort. CARDIOVASCULAR: Regular rate and rhythm with a heart rate of 79 and sinus rhythm on the monitor. ABDOMEN: Has notable anasarca. Nontender to exam. Hypoactive bowel sounds. She also has a rectal tube that is draining liquid brown stool. EXTREMITIES: She has some mild edema throughout, anasarca-type pattern, with notable ecchymosis on bilateral upper and lower extremities. She also has a left hip dressing, which is clean, dry, and intact. PERTINENT LABS: Sodium 150, potassium 3.6, BUN is 44, creatinine 1.28. White blood cell count 19.1, hemoglobin 7, hematocrit 21.2, platelet count 82. Last INR checked was 2.3. Total bilirubin 1.8, alkaline phosphatase 79, ALT 19, AST 56. Chest x-ray today shows continued right greater than left pleural effusions and bibasilar atelectasis. Procalcitonin on the was 7.63. Prealbumin was 4.4. ASSESSMENT: Includes, 1. Sepsis, pneumonia which was present on admission, hypoxic respiratory failure (which has improved). 2. Severe protein-calorie malnutrition with a prealbumin of 4.4. 3. Debility and weakness. 4. Recent left hip surgery. 5. Atrial fibrillation with rapid ventricular response on admission, treated with amiodarone, presently in sinus rhythm. 6. History of chronic lymphocytic leukemia with a baseline white blood cell count of 17 to 28. PLAN: 1. We will attempt PEG tube placement on . We will have an assess for anesthesia risks. 2. Nutrition to see for tube feeding recommendations. 3. No preprocedure antibiotics as she is already receiving IV Zosyn and vancomycin. We will follow. Consultation Report [address] [address] NAME: LORETTA DUVAL DANY : 29 STATUS : ADM IN [facility]#: [id number] AGE: 86 ADM/REG DATE : 12/08/16 MR#: [id number] REPORT SERV DATE: 12/12/16 DICTATED BY: JULIET ESPARZA DATE: 12/12/16 REPORT STATUS : Draft TRANSCRIBED BY: TRACY DATE: 12/12/16 RAMONA/TRACY ESTHER Agosto / [id number] CC: Jacqueline Gross M.D.
--- NOTE | ~2016-12-08 | DS ---
Discharge Summary [facility] [address] [facility] [place]. [address] NAME: LORETTA CAO : 29 STATUS : ADM IN [facility]#: [id number] AGE: 86 ADM/REG DATE : 12/08/16 MR#: [id number] REPORT SERV DATE: 12/18/16 DICTATED BY: Lawrence STARK DATE: 12/18/16 REPORT STATUS : Draft TRANSCRIBED BY: MODL DATE: 12/18/16 ADMISSION DATE: 12/08/2016 DISCHARGE DATE: DIAGNOSES AT DISCHARGE: 1. Metabolic encephalopathy, resolving. 2. Sepsis, resolved. 3. Healthcare-associated pneumonia, resolved. 4. Severe protein-calorie malnutrition. 5. Hypoxic respiratory failure, resolved. 6. Chronic lymphocytic leukemia. 7. Chronic kidney disease, stage 3. 8. Paroxysmal atrial fibrillation. 9. Recent hip fracture repair. CONSULTANTS: None. PROCEDURES: None. HOSPITAL COURSE: For details of earlier hospital stay, please see detailed interim summary dictated by myself last week. Continuing on since then, the patient was initially planned to have a PEG tube. Unfortunately, they were unable to place either endoscopically or via Interventional Radiology. The patient was felt to be too frail to consider surgical placement. We did have Speech Therapy evaluate the patient because her mental status had improved over the weekend, they felt she would be safe on a soft mechanical diet, chopped meats with gravy and thin liquids with aspiration precautions. The patient has been started on this diet and observed and has tolerated it well. The big problem will not be controlling her airway, will be simply getting her the amount of kilocalories needed to improve her functional status. This will be an ongoing challenge. The patient has improved to the point that she could safely transition to a [facility] facility. She has completed antimicrobial therapy. She remains in sinus rhythm on oral amiodarone therapy. We will not resume Eliquis secondary to her frailty and bleeding risk. She will continue on aspirin therapy daily. The patient will have ongoing physical and occupational therapy at her [facility] facility, and we recommend wheat-meal supplements to improve her caloric intake in hopes of better nutrition will improve her functional status. Please refer to her discharge MAR for all discharge medications. Prescriptions have been provided for Marinol as well as Ultram. She will follow up with her primary care provider in approximately four to six weeks. DICTATED BY: Lawrence Stark M.D. [facility]/TRACY Discharge Summary [address] [address] NAME: LORETTA CAO : 29 STATUS : ADM IN PAT#: [id number] AGE: 86 ADM/REG DATE : 12/08/16 MR#: [id number] REPORT SERV DATE: 12/18/16 DICTATED BY: Lawrence STARK DATE: 12/18/16 REPORT STATUS : Draft TRANSCRIBED BY: TRACY DATE: 12/18/16 Lawrence Stark M.D. / [id number] CC: Jacqueline Gross M.D.
--- NOTE | ~2016-12-08 | EGD ---
EGD REPORT [facility] [address] [place]. [address] NAME: LORETTA DUVAL : 29 STATUS : ADM IN PAT#: [id number] AGE: 86 ADM/REG DATE : 12/08/16 MR#: [id number] REPORT SERV DATE: 12/13/16 DICTATED BY: JUSTIN PULLIAM DATE: 12/13/16 REPORT STATUS : Draft [facility]ANSCRIBED BY: [facility] DATE: 12/13/16 Endoscopy Center Patient Name: Loretta Duval Date of : 1930 Attending MD: JUSTIN PULLIAM MD Procedure Date No Time: 12/13/2016 Procedure: Upper GI endoscopy Indications: Place PEG due to dysphagia, Place PEG due to impaired swallowing Medicines: Monitored Anesthesia Care Complications: No immediate complications. Estimated blood loss: Minimal. Procedure: Pre-Anesthesia Assessment: - ASA Grade Assessment: IV - A patient with severe systemic disease that is a constant threat to life. After obtaining informed consent, the endoscope was passed under direct vision. Throughout the procedure, the patient's blood pressure, pulse, and oxygen saturations were monitored continuously. The GIF H190 [id number] was introduced through the mouth, and advanced to the second part of duodenum. The upper GI endoscopy was accomplished without difficulty. The patient tolerated the procedure well. Findings: No gross lesions were noted in the entire esophagus. The entire examined stomach was normal. The patient was placed in the supine position for PEG placement. The stomach was insufflated to appose gastric and abdominal osborne. A site was located that had a "fair" light reflex at the junction of the body and fundus. No other adequate sites were seen. There was "fair" one to one visualized in the stomach with palpation. The area was marked and prepped and draped in a sterile fashion. The 25G needle was passed to find the gastric lumen and numb the area of insertion with lidocaine. Air was aspirated, but the needle never entered the gastric lumen. The needle was repositioned and advanced again on three separate occasions, but air was aspirated each time without seeing the needle tip in the gastric lumen, concerning for the presence of bowel covering the gastric body and blocking safe insertion of a PEG tube. The procedure was aborted at this point. Estimated blood loss was minimal. The examined duodenum was normal. Impression: - Unremarkable EGD - Due to inability to localize a site for safe percutaneous placement PEG was not completed. The needle EGD REPORT [address] [address] NAME: LORETTA DUVAL : 29 STATUS : ADM IN [facility]#: [id number] AGE: 86 ADM/REG DATE : 12/08/16 MR#: [id number] REPORT SERV DATE: 12/13/16 DICTATED BY: JUSTIN PULLIAM DATE: 12/13/16 REPORT STATUS : Draft TRANSCRIBED BY: [employer] DATE: 12/13/16 was passed x 4 with aspiration of air, concerning for bowel/colon overlaying the stomach body. Recommendation: - Return patient to hospital [facility] for ongoing care. - Refer to an interventional radiologist. Procedure Code(s): --- Professional --- 07251, 52, Esophagogastroduodenoscopy, flexible, transoral; with directed placement of percutaneous gastrostomy tube Diagnosis Code(s): --- Professional --- R13.10, Dysphagia, unspecified Z43.1, Encounter for attention to gastrostomy CPT copyright 2013 [employer]. All rights reserved. The codes documented in this report are preliminary and upon energy infrastructure engineer review may be revised to meet current compliance requirements. Justin Pulliam MD JUSTIN PULLIAM MD 12/13/2016 4:32 PM This report has been signed electronically. Number of Addenda: 0 Note Initiated On: 12/13/2016 1:51 PM Scope Withdrawal Time 0 hours 0 minutes 0 seconds [address] [place] [address]
--- NOTE | ~2016-12-08 | HP ---
History And Physical [id number] [place]. [address] NAME: LORETTA CAO : 28 STATUS : ADM IN [facility]#: [id number] AGE: 86 ADM/REG DATE : 12/08/16 MR#: [id number] REPORT SERV DATE: 12/08/16 DICTATED BY: JAZMINE JACK DATE: 12/08/16 REPORT STATUS : Draft TRANSCRIBED BY: MODL DATE: 12/08/16 DATE OF ADMISSION: 12/08/2016 CHIEF COMPLAINT: An 86-year-old female recovering from a recent left hip surgery, now presenting with somnolence, shortness of breath, and evidence of pneumonia. HISTORY OF PRESENT ILLNESS: The patient's history was obtained through review of medical records obtained from [facility] and review of [facility] and [employer] medical records. Unfortunately, the patient unable to give a history herself and an attempt to contact the patient's and nephew was unsuccessful. What is known as the patient presented to our hospital for left hip replacement on 12/02/2016, was able to discharge back to her place of residence which is [facility]. The patient became increasingly short of breath, hypoxic, confused, lethargic, prompting the facility to send the patient to the hospital for further evaluation. No reported nausea and vomiting. No diarrhea. No cough has been noticed here. The patient did develop a fever up to 101.8, but no chills. Otherwise, history of presenting illness and review of systems are unobtainable because of limited information from location of transfer and the patient's inability to speak for herself and inability to contact family by phone numbers given in her records. REVIEW OF SYSTEMS: Otherwise unobtainable. PAST MEDICAL HISTORY: 1. Chronic lymphocytic leukemia (CLL) followed by Dr. Bharathi Galindo with baseline white blood cell count of about 17 to 28, diagnosed in 1994. 2. Chronic kidney disease, stage 3. Baseline creatinine of 1.3 to 1.6. 3. Hypertension. 4. Coronary artery disease, status post stent x5, most recently in 2013. 5. Followed by [facility]. 6. Gastroesophageal reflux disorder. 7. Breast cancer in 1970 status post surgical resection. 8. Macular degeneration. 9. Paroxysmal atrial fibrillation. 10.Goiter. 11.Pericardial effusion. 12.Shingles. 13.Crohn's disease apparently has not been active in years, but used to involve with the colon and the ilium followed by Dr. Anabella Kelley. 14.Urinary tract infection. 15.Splenomegaly. PAST SURGICAL HISTORY: History And Physical [address] [address] NAME: LORETTA CAO : 28 STATUS : ADM IN PAT#: [id number] AGE: 86 ADM/REG DATE : 12/08/16 MR#: [id number] REPORT SERV DATE: 12/08/16 DICTATED BY: JAZMINE JACK DATE: 12/08/16 REPORT STATUS : Draft TRANSCRIBED BY: TRACY DATE: 12/08/16 1. Bilateral mastectomy. 2. Left hip surgery. 3. Appendectomy. 4. Hysterectomy with oophorectomy. 5. Pacemaker. 6. Wrist surgery. ALLERGIES: TO RANITIDINE, TAGAMET, IV CONTRAST, SHELLFISH, MORPHINE, CODEINE, ASPIRIN, MESALAMINE, PIROXICAM, DEMEROL, AND PLAVIX. SOCIAL HISTORY: No tobacco abuse. No alcohol abuse. She is . Lives at [facility], a main point of contact is her nephew. FAMILY HISTORY: Father with stroke. Mother with pancreatic cancer. CURRENT MEDICATIONS: Unknown at this time. We have requested a medication list to be obtained by Pharmacy. PHYSICAL EXAMINATION: VITAL SIGNS: Temperature 101.8, pulse 150, blood pressure 130/52, respiratory rate 20, and O2 saturation 80% on 3 L nasal cannula, 92% on 5 L nasal cannula. GENERAL: An ill-appearing female, very lethargic and ill, in no evidence of distress however. HEENT: Pupils equal, round, and reactive to light. No conjunctival pallor. No scleral icterus. Nares are patent. Oropharynx is clear of obstruction. Dry mucous membranes. NECK: Trachea midline. No thyromegaly. LYMPH: No cervical lymphadenopathy. No supraclavicular lymphadenopathy. RESPIRATORY: The patient has diminished breath sounds at the base of lungs, but no wheezes, no rhonchi, no rales. Nonlabored respiratory effort at this time. CARDIOVASCULAR: Tachycardic, irregularly irregular. No murmurs, rubs, or gallops are appreciated. The patient does have slightly pitting edema of the bilateral lower extremities that is symmetrical. ABDOMEN: The patient does have a palpable splenomegaly. No hepatomegaly. The patient also has quite a bit of distention of the abdomen with significant tympanic resonance percussed throughout. Diminished bowel tones. There is no guarding, no rebound. DERMATOLOGICAL: Warm and dry extremities. No pallor. No cyanosis. PSYCHIATRIC: Very lethargic, but does arouse to vocal stimuli and seems to answer yes and no questions to a degree, but is easily distracted and falls asleep. She is disoriented x3. A flat affect. Irritable mood. LABORATORY DATA: White blood cell count 32.7, but with an elevated lymphocyte count only, hemoglobin 10, hematocrit 31, and platelets 135. Sodium 138, potassium 3.5, chloride 107, bicarb 24, BUN 36, creatinine 1.72, and glucose 92. Urinalysis negative for infection, but shows 10 hyaline casts. History And Physical [address] [address] NAME: LORETTA CAO : 28 STATUS : ADM IN [facility]#: [id number] AGE: 86 ADM/REG DATE : 12/08/16 MR#: [id number] REPORT SERV DATE: 12/08/16 DICTATED BY: JAZMINE JACK DATE: 12/08/16 REPORT STATUS : Draft TRANSCRIBED BY: TRACY DATE: 12/08/16 ABG demonstrates pH 7.42, a PaCO2 of 26, a PaO2 of 87, a bicarb of 16. Brain natriuretic peptide 159. Troponin 0.08. Albumin 1.6. Procalcitonin 4.53. Lactic acid 2.1. INR 1.8. Total bilirubin 1.6. STUDIES: 1. CT scan of the abdomen shows colonic obstruction, colitis, ileitis, bilateral pneumonia is also noted. 2. EKG by my own evaluation shows rapid atrial fibrillation. 3. CT scan of the brain without contrast shows no acute intracranial process. ASSESSMENT AND PLAN: 1. Severe sepsis with lactic acid of 2.1, encephalopathy, elevated white blood cell count, tachycardia, tachypnea, fever of 101.8, pneumonia and hypoxia. Check blood cultures. She is placed on appropriate IV antibiotics. 2. Facility-acquired pneumonia, but would also like to rule out aspiration risk. Check a swallow study. Check blood cultures. Place on IV antibiotics. 3. Hypoxic respiratory failure. Provide supportive care. 4. Chronic lymphocytic leukemia, followed by Dr. Bharathi Galindo, oncologist. 5. Chronic kidney disease, stage 3. 6. Rapid atrial fibrillation. Place on Cardizem drip IV and heparin drip IV. 7. Hypoalbuminemia. Check prealbumin. 8. Colitis with ileitis, history of Crohn's disease. Consult Dr. Anabella Kelley, automotive parts person. Check Hemoccult. 9. Recent left hip surgery. KPL/MODL Jazmine Jack M.D. / [id number] CC: MD Bharathi Mitchell M.D. Vijaykurmar Patel, M.D. Kellie Jolley, M.D.
[2016-12-08 01:45] LABS: ALLENS TEST Pos; BE (BASE EXCESS) -7.1 MEQ/L (0 +/- 2.5); DEVICE Nasal Cannula @ 5; HCO3 (ACTUAL BICARBONATE) 16.2 MEQ/L (23-27); HEMOBLOGIN CONTENT 9.6 G/DL (12-16); INSTRUMENT SERIAL # 8087; METHEMOGLOBIN 0.4 % (0-3); O2 CONTENT 12.9 VOL% (18-24); OPERATOR ID 17589; PCO2 (CO2 TENSION) 26 MMHG (35-45); PO2 (O2 TENSION) 87 MMHG (79-93); SAMPLE Arterial; pH 7.42 (7.37-7.43)
[2016-12-08 02:16] LABS: INTERNATIONAL NORMAL RATI 1.8 UNITS (-); PARTIAL THROMBO TIME 36.5 SEC (22.5-37.2); PROTIME (NOT ORD) 21.1 SEC (12.0-14.5)
[2016-12-08 02:19] LABS: HEMOGLOBIN 10.2 g/dL (12.0-16.0); MEAN CORPUSCULAR HEMOGLOB 29.9 pg (26.0-34.0); MEAN PLATELET VOLUME 11.2 fL (9.2-13.0); RBC DISTRIBUTION WIDTH 16.6 % (12.0-16.0); RED CELL COUNT 3.41 10/6/uL (4.0-5.6)
[2016-12-08 02:21] LABS: ER CBC TAT 0 Hrs 16 Mins; HEMATOCRIT 31.1 % (36.0-48.0); MEAN CORPUS HGB CONC 32.8 g/dL (32.0-36.0); MEAN CORPUSCULAR VOLUME 91.2 fL (80-100); PLATELET COUNT 135 10/3/uL (150-400); WHITE BLOOD CELLS 32.7 10/3/uL (4.5-10.5)
[2016-12-08 02:22] LABS: MANUAL DIFF YES %
[2016-12-08 02:25] LABS: LACTATE 2.1 MMOL/L (0.3-2.4)
[2016-12-08 02:26] LABS: A/G RATIO 0.5 (0.7-1.9); ALBUMIN 1.6 G/DL (3.5-5.0); ALKALINE PHOSPHATASE 114 U/L (45-117); BUN (BLOOD UREA NITROGEN) 36 MG/DL (6-23); CALCIUM, SERUM 8.3 MG/DL (8.5-10.4); CHLORIDE, SERUM 107 MMOL/L (96-112); CO2 (CARBON DIOXIDE) 24 MMOL/L (24-34); CREATININE 1.72 MG/DL (0.55-1.02); GFR AFRICAN AMERICAN 30 ML/MIN (>=60); GFR NON AFRICAN AMERICAN 26 ML/MIN (>=60); GLOBULIN 3.2 G/DL (2.5-4.1); GLUCOSE, SERUM 92 MG/DL (60-99); POTASSIUM, SERUM 3.5 MMOL/L (3.5-5.3); SGOT(AST) 44 U/L (5-40); SGPT(ALT) 17 U/L (5-65); SODIUM, SERUM 138 MMOL/L (135-148); TOTAL BILIRUBIN 1.6 MG/DL (0-1.2); TOTAL PROTEIN 4.8 G/DL (6.0-8.5); TROPONIN I 0.08 NG/ML (<0.05)
[2016-12-08 02:31] LABS: LYMPHOCYTES ABSOLUTE (CALC) 30.08 10/3/uL (0.67-4.30); NEUTROPHILS ABSOLUTE (CALC) 2.62 10/3/uL (2.02-8.40); TOTAL NUCLEATED CELLS 100
[2016-12-08 02:33] LABS: ER DIFF TAT 0 Hrs 28 Mins; LYMPHOCYTES 82 %; SEGMENTED NEUTROPHIL (0) 18 %
[2016-12-08 02:34] LABS: PLATELET ESTIMATE SLT DEC (ADEQUATE); RBC MORPHOLOGY NORM (NORMAL)
[2016-12-08 02:46] LABS: PROCALCITONIN 4.53 ng/mL (<0.5)
[2016-12-08 03:39] LABS: ASCORBIC ACID (UR NOT ORDER) NEG (NEG); BILIRUBIN, URINE NEGATIVE (NEG); ER URINALYSIS TAT 0 Hrs 00 Mins; KETONE, URINE NEGATIVE (NEG); LEUKOCYTE ESTERASE(NOT OR NEG (NEG); NITRITE (URINE) NEG (NEG); WBC (NOT ORDERED) (RFLEX) 1 (0-5)
[~2016-12-08 04:36] MED LIST changes: +METRONIDAZOLE 0.75% V
[2016-12-08 06:09] LABS: LACTATE 2.4 MMOL/L (0.3-2.4)
[2016-12-08 12:18] LABS: INTERNATIONAL NORMAL RATI 2.3 UNITS (-); PARTIAL THROMBO TIME 41.5 SEC (22.5-37.2)
[2016-12-08 12:25] LABS: PROTIME (NOT ORD) 24.9 SEC (12.0-14.5)
[2016-12-08 12:33] LABS: HEMOGLOBIN 9.5 g/dL (12.0-16.0); MEAN CORPUS HGB CONC 32.8 g/dL (32.0-36.0); MEAN CORPUSCULAR HEMOGLOB 29.8 pg (26.0-34.0); MEAN CORPUSCULAR VOLUME 90.9 fL (80-100); MEAN PLATELET VOLUME 11.5 fL (9.2-13.0); PLATELET COUNT 152 10/3/uL (150-400); RBC DISTRIBUTION WIDTH 16.8 % (12.0-16.0); RED CELL COUNT 3.19 10/6/uL (4.0-5.6); WHITE BLOOD CELLS 43.6 10/3/uL (4.5-10.5)
[2016-12-08 12:34] LABS: MANUAL DIFF YES %; PREALBUMIN 4.4 MG/DL (17.0-43.0)
[2016-12-08 12:35] LABS: A/G RATIO 0.8 (0.7-1.9); ALKALINE PHOSPHATASE 83 U/L (45-117); BAND NEUTROPHILS 3 %; BUN (BLOOD UREA NITROGEN) 35 MG/DL (6-23); CALCIUM, SERUM 7.9 MG/DL (8.5-10.4); CHLORIDE, SERUM 110 MMOL/L (96-112); CO2 (CARBON DIOXIDE) 20 MMOL/L (24-34); GFR AFRICAN AMERICAN 39 ML/MIN (>=60); GFR NON AFRICAN AMERICAN 34 ML/MIN (>=60); GLOBULIN 2.5 G/DL (2.5-4.1); GLUCOSE, SERUM 82 MG/DL (60-99); LYMPHOCYTES 75 %; MONOCYTES 4 %; MONOCYTES ABSOLUTE (CALC) 1.74 10/3/uL (0.21-1.20); NEUTROPHILS ABSOLUTE (CALC) 9.16 10/3/uL (2.02-8.40); PHOSPHORUS, SERUM 3.5 MG/DL (2.5-4.5); POTASSIUM, SERUM 3.4 MMOL/L (3.5-5.3); SEGMENTED NEUTROPHIL (0) 18 %; SGOT(AST) 33 U/L (5-40); SGPT(ALT) 14 U/L (5-65); SODIUM, SERUM 140 MMOL/L (135-148); TOTAL BILIRUBIN 2.7 MG/DL (0-1.2); TOTAL NUCLEATED CELLS 100; TOTAL PROTEIN 4.5 G/DL (6.0-8.5)
[2016-12-08 12:36] LABS: ACANTHOCYTES OCC (0-2/OIF); BURR CELLS 1+ (3-10/OIF) (0-2/OIF); HELMET CELLS OCC (0-2/OIF); PLATELET ESTIMATE ADQ (ADEQUATE); POLYCHROMASIA 1+ (2-5/OIF) (0-1/OIF); SMUDGE CELLS FEW; TROPONIN I 0.06 NG/ML (<0.05); ULTRASENSITIVE TSH 0.685 MCIU/ML (0.358-3.740)
[2016-12-08 12:37] LABS: MICROCYTES 1+ (5-10/OIF) (0-5/OIF); TEARDROP SHAPED RBCS OCC (0-2/OIF); TOXIC GRANULATION 1+; VACUOLATED NEUTROPHILES OCC
[2016-12-08 13:04] LABS: PROCALCITONIN 4.86 ng/mL (<0.5)
[2016-12-09 06:43] LABS: HEMATOCRIT 27.1 % (36.0-48.0); MEAN CORPUS HGB CONC 33.2 g/dL (32.0-36.0); MEAN CORPUSCULAR VOLUME 90.3 fL (80-100); MEAN PLATELET VOLUME 12.1 fL (9.2-13.0); PLATELET COUNT 177 10/3/uL (150-400); RBC DISTRIBUTION WIDTH 16.9 % (12.0-16.0)
[2016-12-09 06:44] LABS: MANUAL DIFF YES %; WHITE BLOOD CELLS 52.8 10/3/uL (4.5-10.5)
[2016-12-09 06:52] LABS: A/G RATIO 0.6 (0.7-1.9); ALBUMIN 1.7 G/DL (3.5-5.0); ALKALINE PHOSPHATASE 79 U/L (45-117); BUN (BLOOD UREA NITROGEN) 36 MG/DL (6-23); CALCIUM, SERUM 8.9 MG/DL (8.5-10.4); CHLORIDE, SERUM 114 MMOL/L (96-112); CO2 (CARBON DIOXIDE) 17 MMOL/L (24-34); CREATININE 1.36 MG/DL (0.55-1.02); GFR AFRICAN AMERICAN 40 ML/MIN (>=60); GFR NON AFRICAN AMERICAN 35 ML/MIN (>=60); GLOBULIN 2.7 G/DL (2.5-4.1); GLUCOSE, SERUM 97 MG/DL (60-99); PHOSPHORUS, SERUM 3.2 MG/DL (2.5-4.5); POTASSIUM, SERUM 3.5 MMOL/L (3.5-5.3); SGOT(AST) 79 U/L (5-40); SGPT(ALT) 23 U/L (5-65); SODIUM, SERUM 145 MMOL/L (135-148); TOTAL BILIRUBIN 2.3 MG/DL (0-1.2); TOTAL PROTEIN 4.4 G/DL (6.0-8.5)
[2016-12-09 07:15] LABS: BAND NEUTROPHILS 5 %; LYMPHOCYTES 87 %; LYMPHOCYTES ABSOLUTE (CALC) 45.94 10/3/uL (0.67-4.30); MONOCYTES 1 %; MONOCYTES ABSOLUTE (CALC) 0.53 10/3/uL (0.21-1.20); NEUTROPHILS ABSOLUTE (CALC) 6.34 10/3/uL (2.02-8.40); PLATELET ESTIMATE ADQ (ADEQUATE); SEGMENTED NEUTROPHIL (0) 7 %; TOTAL NUCLEATED CELLS 100
[2016-12-09 07:16] LABS: BURR CELLS 1+ (3-10/OIF) (0-2/OIF); POIKILOCYTOSIS 1+ (5-10/OIF) (0-5/OIF); SMUDGE CELLS FEW; TOXIC GRANULATION 1+
[2016-12-09] MEDS ORDERED: AMOX250 PO (08:48)
[2016-12-09] MEDS ORDERED: DSS PO (09:03)
[2016-12-09] MEDS ORDERED: ELIQUIS 2.5 MG2.5 MG PO (09:06)
[2016-12-09] MEDS ORDERED: FLORASTOR250 MG PO (09:07)
[2016-12-09] MEDS ORDERED: IMBRU140C PO (09:09)
[2016-12-09] MEDS ORDERED: L20 PO (09:09)
[2016-12-09] MEDS ORDERED: MVI PO (09:12)
[2016-12-09] MEDS ORDERED: T PO (09:14)
[2016-12-09] MEDS ORDERED: ACETSUP650 PR (09:15)
[2016-12-09] MEDS ORDERED: BISR PR (09:16)
[2016-12-09] MEDS ORDERED: MARI5 PO (09:17)
[2016-12-09] MEDS ORDERED: FLEETS PR (09:20)
[2016-12-09] MEDS ORDERED: MOMUD PO (09:22)
[2016-12-09] MEDS ORDERED: ULTRAM50 PO (09:23)
[2016-12-10 04:52] LABS: HEMATOCRIT 25.7 % (36.0-48.0); HEMOGLOBIN 8.3 g/dL (12.0-16.0); MEAN CORPUS HGB CONC 32.3 g/dL (32.0-36.0); MEAN CORPUSCULAR HEMOGLOB 29.3 pg (26.0-34.0); MEAN CORPUSCULAR VOLUME 90.8 fL (80-100); MEAN PLATELET VOLUME 12.1 fL (9.2-13.0); PLATELET COUNT 151 10/3/uL (150-400); RBC DISTRIBUTION WIDTH 17.3 % (12.0-16.0); RED CELL COUNT 2.83 10/6/uL (4.0-5.6)
[2016-12-10 04:53] LABS: MANUAL DIFF YES %; WHITE BLOOD CELLS 36.1 10/3/uL (4.5-10.5)
[2016-12-10 05:43] LABS: ANISOCYTOSIS 1+ (5-10/OIF) (0-5/OIF); BAND NEUTROPHILS 7 %; IMMATURE GRANS ABSOLUTE (CALC) 0.72 10/3/uL (0.0-0.11); LYMPHOCYTES 70 %; LYMPHOCYTES ABSOLUTE (CALC) 25.27 10/3/uL (0.67-4.30); METAMYELOCYTES 2 %; MONOCYTES 3 %; MONOCYTES ABSOLUTE (CALC) 1.08 10/3/uL (0.21-1.20); NEUTROPHILS ABSOLUTE (CALC) 9.03 10/3/uL (2.02-8.40); PLATELET ESTIMATE ADQ (ADEQUATE); SEGMENTED NEUTROPHIL (0) 18 %; TOTAL NUCLEATED CELLS 100
[2016-12-10 06:41] LABS: A/G RATIO 0.5 (0.7-1.9); ALBUMIN 1.4 G/DL (3.5-5.0); ALKALINE PHOSPHATASE 79 U/L (45-117); CALCIUM, SERUM 8.9 MG/DL (8.5-10.4); CHLORIDE, SERUM 117 MMOL/L (96-112); CO2 (CARBON DIOXIDE) 18 MMOL/L (24-34); CREATININE 1.45 MG/DL (0.55-1.02); GFR AFRICAN AMERICAN 37 ML/MIN (>=60); GFR NON AFRICAN AMERICAN 32 ML/MIN (>=60); GLOBULIN 2.7 G/DL (2.5-4.1); POTASSIUM, SERUM 3.3 MMOL/L (3.5-5.3); SGOT(AST) 56 U/L (5-40); SGPT(ALT) 19 U/L (5-65); SODIUM, SERUM 149 MMOL/L (135-148); TOTAL PROTEIN 4.1 G/DL (6.0-8.5)
[2016-12-10 06:42] LABS: BUN (BLOOD UREA NITROGEN) 50 MG/DL (6-23); GLUCOSE, SERUM 130 MG/DL (60-99); TOTAL BILIRUBIN 1.8 MG/DL (0-1.2)
[2016-12-11 05:19] LABS: HEMATOCRIT 24.3 % (36.0-48.0); HEMOGLOBIN 7.9 g/dL (12.0-16.0); MEAN CORPUS HGB CONC 32.5 g/dL (32.0-36.0); MEAN CORPUSCULAR HEMOGLOB 29.7 pg (26.0-34.0); MEAN CORPUSCULAR VOLUME 91.4 fL (80-100); MEAN PLATELET VOLUME 11.6 fL (9.2-13.0); PLATELET COUNT 131 10/3/uL (150-400); RBC DISTRIBUTION WIDTH 17.6 % (12.0-16.0); RED CELL COUNT 2.66 10/6/uL (4.0-5.6)
[2016-12-11 05:23] LABS: MANUAL DIFF YES %; WHITE BLOOD CELLS 26.5 10/3/uL (4.5-10.5)
[2016-12-11 05:34] LABS: BUN (BLOOD UREA NITROGEN) 53 MG/DL (6-23); CALCIUM, SERUM 8.6 MG/DL (8.5-10.4); CHLORIDE, SERUM 119 MMOL/L (96-112); CO2 (CARBON DIOXIDE) 20 MMOL/L (24-34); CREATININE 1.46 MG/DL (0.55-1.02); GFR AFRICAN AMERICAN 37 ML/MIN (>=60); GFR NON AFRICAN AMERICAN 32 ML/MIN (>=60); GLUCOSE, SERUM 134 MG/DL (60-99); POTASSIUM, SERUM 3.6 MMOL/L (3.5-5.3); SODIUM, SERUM 148 MMOL/L (135-148)
[2016-12-11 06:09] LABS: PROCALCITONIN 7.63 ng/mL (<0.5)
[2016-12-11 06:30] LABS: LYMPHOCYTES 85 %; LYMPHOCYTES ABSOLUTE (CALC) 22.53 10/3/uL (0.67-4.30); MONOCYTES 2 %; MONOCYTES ABSOLUTE (CALC) 0.53 10/3/uL (0.21-1.20); NEUTROPHILS ABSOLUTE (CALC) 3.45 10/3/uL (2.02-8.40); SEGMENTED NEUTROPHIL (0) 13 %; TOTAL NUCLEATED CELLS 100
[2016-12-11 06:31] LABS: ANISOCYTOSIS 1+ (5-10/OIF) (0-5/OIF); PLATELET ESTIMATE SLT DEC (ADEQUATE); POLYCHROMASIA 1+ (2-5/OIF) (0-1/OIF); SMUDGE CELLS FEW
[2016-12-11 06:34] LABS: POIKILOCYTOSIS 1+ (5-10/OIF) (0-5/OIF); TOXIC GRANULATION 1+
[2016-12-12 05:16] LABS: MEAN CORPUSCULAR HEMOGLOB 30.4 pg (26.0-34.0); MEAN CORPUSCULAR VOLUME 92.2 fL (80-100); MEAN PLATELET VOLUME 11.2 fL (9.2-13.0); RBC DISTRIBUTION WIDTH 17.3 % (12.0-16.0); WHITE BLOOD CELLS 19.1 10/3/uL (4.5-10.5)
[2016-12-12 05:26] LABS: HEMATOCRIT 21.2 % (36.0-48.0)
[2016-12-12 05:27] LABS: MANUAL DIFF YES %; PLATELET COUNT 86 10/3/uL (150-400)
[2016-12-12 05:46] LABS: CALCIUM, SERUM 7.8 MG/DL (8.5-10.4); CHLORIDE, SERUM 120 MMOL/L (96-112); CO2 (CARBON DIOXIDE) 22 MMOL/L (24-34); CREATININE 1.28 MG/DL (0.55-1.02); GFR AFRICAN AMERICAN 44 ML/MIN (>=60); GFR NON AFRICAN AMERICAN 38 ML/MIN (>=60); GLUCOSE, SERUM 116 MG/DL (60-99); POTASSIUM, SERUM 3.6 MMOL/L (3.5-5.3); SODIUM, SERUM 150 MMOL/L (135-148)
[2016-12-12 05:47] LABS: BUN (BLOOD UREA NITROGEN) 44 MG/DL (6-23)
[2016-12-12 07:12] LABS: ANISOCYTOSIS 1+ (5-10/OIF) (0-5/OIF); LYMPHOCYTES 80 %; LYMPHOCYTES ABSOLUTE (CALC) 15.28 10/3/uL (0.67-4.30); MONOCYTES 3 %; MONOCYTES ABSOLUTE (CALC) 0.57 10/3/uL (0.21-1.20); NEUTROPHILS ABSOLUTE (CALC) 3.25 10/3/uL (2.02-8.40); PLATELET ESTIMATE DEC (ADEQUATE); POIKILOCYTOSIS 1+ (5-10/OIF) (0-5/OIF); POLYCHROMASIA 1+ (2-5/OIF) (0-1/OIF); SEGMENTED NEUTROPHIL (0) 17 %; TOTAL NUCLEATED CELLS 100
[2016-12-12 07:13] LABS: TOXIC GRANULATION 1+
[2016-12-12 08:48] LABS: VANCOMYCIN TROUGH 14.1 MCG/ML (10.0-20.0)
[2016-12-12 15:49] LABS: PROTIME (NOT ORD) 22.3 SEC (12.0-14.5)
[2016-12-13 04:12] LABS: HEMATOCRIT 22.6 % (36.0-48.0); MANUAL DIFF YES %; MEAN CORPUSCULAR VOLUME 93.8 fL (80-100); MEAN PLATELET VOLUME 11.5 fL (9.2-13.0); PLATELET COUNT 92 10/3/uL (150-400); RBC DISTRIBUTION WIDTH 17.3 % (12.0-16.0); RED CELL COUNT 2.41 10/6/uL (4.0-5.6); WHITE BLOOD CELLS 16.6 10/3/uL (4.5-10.5)
[2016-12-13 04:19] LABS: INTERNATIONAL NORMAL RATI 1.9 UNITS (-); PARTIAL THROMBO TIME 32.3 SEC (22.5-37.2); PROTIME (NOT ORD) 21.7 SEC (12.0-14.5)
[2016-12-13 04:32] LABS: CALCIUM, SERUM 7.7 MG/DL (8.5-10.4); CHLORIDE, SERUM 119 MMOL/L (96-112); CO2 (CARBON DIOXIDE) 20 MMOL/L (24-34); CREATININE 1.15 MG/DL (0.55-1.02); GFR AFRICAN AMERICAN 50 ML/MIN (>=60); GFR NON AFRICAN AMERICAN 43 ML/MIN (>=60); GLUCOSE, SERUM 126 MG/DL (60-99); POTASSIUM, SERUM 3.7 MMOL/L (3.5-5.3); SODIUM, SERUM 147 MMOL/L (135-148)
[2016-12-13 04:33] LABS: BUN (BLOOD UREA NITROGEN) 36 MG/DL (6-23)
[2016-12-13 04:37] LABS: ANISOCYTOSIS 1+ (5-10/OIF) (0-5/OIF); BAND NEUTROPHILS 1 %; IMMATURE GRANS ABSOLUTE (CALC) 0.33 10/3/uL (0.0-0.11); LYMPHOCYTES 62 %; LYMPHOCYTES ABSOLUTE (CALC) 10.29 10/3/uL (0.67-4.30); METAMYELOCYTES 1 %; MONOCYTES 3 %; MYELOCYTES 1 %; NEUTROPHILS ABSOLUTE (CALC) 5.48 10/3/uL (2.02-8.40); PLATELET ESTIMATE DEC (ADEQUATE); SEGMENTED NEUTROPHIL (0) 32 %; TOTAL NUCLEATED CELLS 100
[2016-12-13 10:36] LABS: INTERNATIONAL NORMAL RATI 1.9 UNITS (-); PROTIME (NOT ORD) 21.4 SEC (12.0-14.5)
[2016-12-13 13:09] LABS: INTERNATIONAL NORMAL RATI 1.6 UNITS (-); PROTIME (NOT ORD) 19.3 SEC (12.0-14.5)
[2016-12-14 04:20] LABS: HEMATOCRIT 21.2 % (36.0-48.0); MEAN CORPUS HGB CONC 32.1 g/dL (32.0-36.0); MEAN CORPUSCULAR HEMOGLOB 30.1 pg (26.0-34.0); MEAN CORPUSCULAR VOLUME 93.8 fL (80-100); MEAN PLATELET VOLUME 11.3 fL (9.2-13.0); PLATELET COUNT 99 10/3/uL (150-400); RBC DISTRIBUTION WIDTH 17.8 % (12.0-16.0); RED CELL COUNT 2.26 10/6/uL (4.0-5.6); WHITE BLOOD CELLS 15.3 10/3/uL (4.5-10.5)
[2016-12-14 04:21] LABS: HEMOGLOBIN 6.8 g/dL (12.0-16.0)
[2016-12-14 04:22] LABS: MANUAL DIFF YES %
[2016-12-14 04:34] LABS: CALCIUM, SERUM 7.7 MG/DL (8.5-10.4); CHLORIDE, SERUM 119 MMOL/L (96-112); CO2 (CARBON DIOXIDE) 22 MMOL/L (24-34); GFR AFRICAN AMERICAN 47 ML/MIN (>=60); GFR NON AFRICAN AMERICAN 41 ML/MIN (>=60); GLUCOSE, SERUM 108 MG/DL (60-99); POTASSIUM, SERUM 3.7 MMOL/L (3.5-5.3); SODIUM, SERUM 149 MMOL/L (135-148)
[2016-12-14 04:35] LABS: BUN (BLOOD UREA NITROGEN) 30 MG/DL (6-23)
[2016-12-14 04:40] LABS: ANISOCYTOSIS 1+ (5-10/OIF) (0-5/OIF); BAND NEUTROPHILS 2 %; LYMPHOCYTES 66 %; MONOCYTES 2 %; MONOCYTES ABSOLUTE (CALC) 0.31 10/3/uL (0.21-1.20); PLATELET ESTIMATE SLT DEC (ADEQUATE); SEGMENTED NEUTROPHIL (0) 30 %; TOTAL NUCLEATED CELLS 100
[2016-12-15 05:17] LABS: MEAN CORPUS HGB CONC 32.7 g/dL (32.0-36.0); MEAN CORPUSCULAR HEMOGLOB 30.4 pg (26.0-34.0); MEAN PLATELET VOLUME 11.5 fL (9.2-13.0); PLATELET COUNT 125 10/3/uL (150-400); RBC DISTRIBUTION WIDTH 18.4 % (12.0-16.0); RED CELL COUNT 2.14 10/6/uL (4.0-5.6); WHITE BLOOD CELLS 13.4 10/3/uL (4.5-10.5)
[2016-12-15 05:20] LABS: HEMATOCRIT 19.9 % (36.0-48.0); HEMOGLOBIN 6.5 g/dL (12.0-16.0); MANUAL DIFF YES %
[2016-12-15 05:25] LABS: CALCIUM, SERUM 7.7 MG/DL (8.5-10.4); CHLORIDE, SERUM 114 MMOL/L (96-112); CO2 (CARBON DIOXIDE) 20 MMOL/L (24-34); CREATININE 1.08 MG/DL (0.55-1.02); GFR AFRICAN AMERICAN 53 ML/MIN (>=60); GFR NON AFRICAN AMERICAN 46 ML/MIN (>=60); GLUCOSE, SERUM 113 MG/DL (60-99); SODIUM, SERUM 146 MMOL/L (135-148)
[2016-12-15 05:34] LABS: BUN (BLOOD UREA NITROGEN) 24 MG/DL (6-23); POTASSIUM, SERUM 2.8 MMOL/L (3.5-5.3)
[2016-12-15 06:06] LABS: LYMPHOCYTES 66 %; LYMPHOCYTES ABSOLUTE (CALC) 8.84 10/3/uL (0.67-4.30); MONOCYTES 3 %; NEUTROPHILS ABSOLUTE (CALC) 4.15 10/3/uL (2.02-8.40); SEGMENTED NEUTROPHIL (0) 31 %; TOTAL NUCLEATED CELLS 100
[2016-12-15 06:08] LABS: ANISOCYTOSIS 1+ (5-10/OIF) (0-5/OIF); PLATELET ESTIMATE SLT DEC (ADEQUATE)
[2016-12-15 06:09] LABS: HELMET CELLS OCC (0-2/OIF); POIKILOCYTOSIS 1+ (5-10/OIF) (0-5/OIF)
[2016-12-16 05:27] LABS: MEAN CORPUS HGB CONC 32.3 g/dL (32.0-36.0); MEAN CORPUSCULAR HEMOGLOB 29.7 pg (26.0-34.0); MEAN CORPUSCULAR VOLUME 92.2 fL (80-100); MEAN PLATELET VOLUME 11.9 fL (9.2-13.0); PLATELET COUNT 138 10/3/uL (150-400); RBC DISTRIBUTION WIDTH 19.7 % (12.0-16.0); WHITE BLOOD CELLS 12.7 10/3/uL (4.5-10.5)
[2016-12-16 05:30] LABS: HEMATOCRIT 24.8 % (36.0-48.0); MANUAL DIFF YES %; RED CELL COUNT 2.69 10/6/uL (4.0-5.6)
[2016-12-16 05:38] LABS: CALCIUM, SERUM 7.6 MG/DL (8.5-10.4); CHLORIDE, SERUM 117 MMOL/L (96-112); CO2 (CARBON DIOXIDE) 20 MMOL/L (24-34); CREATININE 1.02 MG/DL (0.55-1.02); GFR AFRICAN AMERICAN 57 ML/MIN (>=60); GFR NON AFRICAN AMERICAN 49 ML/MIN (>=60); POTASSIUM, SERUM 3.2 MMOL/L (3.5-5.3); SODIUM, SERUM 141 MMOL/L (135-148)
[2016-12-16 05:40] LABS: BUN (BLOOD UREA NITROGEN) 20 MG/DL (6-23); GLUCOSE, SERUM 81 MG/DL (60-99)
[2016-12-16 06:05] LABS: ACANTHOCYTES FEW (3-10/OIF); ANISOCYTOSIS 1+ (5-10/OIF) (0-5/OIF); BURR CELLS 1+ (3-10/OIF) (0-2/OIF); LYMPHOCYTES 54 %; LYMPHOCYTES ABSOLUTE (CALC) 6.86 10/3/uL (0.67-4.30); MONOCYTES 2 %; MONOCYTES ABSOLUTE (CALC) 0.25 10/3/uL (0.21-1.20); NEUTROPHILS ABSOLUTE (CALC) 5.59 10/3/uL (2.02-8.40); PLATELET ESTIMATE SLT DEC (ADEQUATE); SEGMENTED NEUTROPHIL (0) 44 %; TOTAL NUCLEATED CELLS 100
[2016-12-17 05:24] LABS: HEMOGLOBIN 8.2 g/dL (12.0-16.0); MEAN CORPUS HGB CONC 32.8 g/dL (32.0-36.0); MEAN CORPUSCULAR HEMOGLOB 29.9 pg (26.0-34.0); MEAN CORPUSCULAR VOLUME 91.2 fL (80-100); PLATELET COUNT 154 10/3/uL (150-400); RBC DISTRIBUTION WIDTH 19.2 % (12.0-16.0); RED CELL COUNT 2.74 10/6/uL (4.0-5.6); WHITE BLOOD CELLS 11.4 10/3/uL (4.5-10.5)
[2016-12-17 05:26] LABS: BUN (BLOOD UREA NITROGEN) 19 MG/DL (6-23); CALCIUM, SERUM 7.2 MG/DL (8.5-10.4); CHLORIDE, SERUM 116 MMOL/L (96-112); CO2 (CARBON DIOXIDE) 18 MMOL/L (24-34); GFR AFRICAN AMERICAN 52 ML/MIN (>=60); GFR NON AFRICAN AMERICAN 45 ML/MIN (>=60); GLUCOSE, SERUM 74 MG/DL (60-99); POTASSIUM, SERUM 3.6 MMOL/L (3.5-5.3); SODIUM, SERUM 143 MMOL/L (135-148)
[2016-12-17 05:27] LABS: MANUAL DIFF YES %
[2016-12-17 06:13] LABS: ANISOCYTOSIS 1+ (5-10/OIF) (0-5/OIF); BAND NEUTROPHILS 2 %; BURR CELLS 1+ (3-10/OIF) (0-2/OIF); EOSINOPHILS 1 %; EOSINOPHILS ABSOLUTE (CALC) 0.11 10/3/uL (0.0-0.53); LYMPHOCYTES 51 %; LYMPHOCYTES ABSOLUTE (CALC) 5.81 10/3/uL (0.67-4.30); MONOCYTES 1 %; MONOCYTES ABSOLUTE (CALC) 0.11 10/3/uL (0.21-1.20); NEUTROPHILS ABSOLUTE (CALC) 5.36 10/3/uL (2.02-8.40); PLATELET ESTIMATE ADQ (ADEQUATE); SEGMENTED NEUTROPHIL (0) 45 %; TOTAL NUCLEATED CELLS 100
[2016-12-17 06:53] LABS: PROCALCITONIN 0.53 ng/mL (<0.5)
[2016-12-18 05:10] LABS: HEMOGLOBIN 8.4 g/dL (12.0-16.0); MANUAL DIFF YES %; MEAN CORPUS HGB CONC 32.3 g/dL (32.0-36.0); MEAN CORPUSCULAR HEMOGLOB 29.5 pg (26.0-34.0); MEAN CORPUSCULAR VOLUME 91.2 fL (80-100); MEAN PLATELET VOLUME 10.6 fL (9.2-13.0); PLATELET COUNT 166 10/3/uL (150-400); RBC DISTRIBUTION WIDTH 18.8 % (12.0-16.0); RED CELL COUNT 2.85 10/6/uL (4.0-5.6); WHITE BLOOD CELLS 9.9 10/3/uL (4.5-10.5)
[2016-12-18 05:30] LABS: BUN (BLOOD UREA NITROGEN) 19 MG/DL (6-23); CALCIUM, SERUM 7.7 MG/DL (8.5-10.4); CHLORIDE, SERUM 114 MMOL/L (96-112); CO2 (CARBON DIOXIDE) 18 MMOL/L (24-34); CREATININE 1.08 MG/DL (0.55-1.02); GFR AFRICAN AMERICAN 53 ML/MIN (>=60); GFR NON AFRICAN AMERICAN 46 ML/MIN (>=60); GLUCOSE, SERUM 86 MG/DL (60-99); POTASSIUM, SERUM 3.7 MMOL/L (3.5-5.3); SODIUM, SERUM 141 MMOL/L (135-148)
[2016-12-18 05:39] LABS: ANISOCYTOSIS 1+ (5-10/OIF) (0-5/OIF); BAND NEUTROPHILS 4 %; LYMPHOCYTES 52 %; LYMPHOCYTES ABSOLUTE (CALC) 5.15 10/3/uL (0.67-4.30); MONOCYTES 1 %; NEUTROPHILS ABSOLUTE (CALC) 4.65 10/3/uL (2.02-8.40); PLATELET ESTIMATE ADQ (ADEQUATE); POIKILOCYTOSIS 1+ (5-10/OIF) (0-5/OIF); SEGMENTED NEUTROPHIL (0) 43 %; SMUDGE CELLS MOD; TOTAL NUCLEATED CELLS 100
== END 2016-12-18 16:44 | DRG 871 ==
LOC: ER 04:36 → 7NO 05:06 → IMCU 12-09 15:48
PROVIDERS: Hospitalist; Internal Medicine; Internal Medicine Cardiovascular Disease; Internal Medicine Gastroenterology; Nurse Practitioner Family; Specialist
PROC: 30233K0 Transfusion of Autologous Frozen Plasma into Peripheral Vein, Percutaneous Approach (ICD-10-PCS; 2016-12-13)
PROC: 0DJ08ZZ Inspection of Upper Intestinal Tract, Via Natural or Artificial Opening Endoscopic (ICD-10-PCS; principal; 2016-12-13 07:00)
PROC: 30233N0 Transfusion of Autologous Red Blood Cells into Peripheral Vein, Percutaneous Approach (ICD-10-PCS; 2016-12-16)
DX: A41.9 Sepsis, unspecified organism (principal); J96.01 Acute respiratory failure with hypoxia; E43 Unspecified severe protein-calorie malnutrition; G93.41 Metabolic encephalopathy; C91.10 Chronic lymphocytic leukemia of B-cell type not having achieved remission; J18.9 Pneumonia, unspecified organism; N18.3 Chronic kidney disease, stage 3 (moderate); I48.0 Paroxysmal atrial fibrillation; R64 Cachexia; Z53.8 Procedure and treatment not carried out for other reasons; R65.20 Severe sepsis without septic shock; I12.9 Hypertensive chronic kidney disease with stage 1 through stage 4 chronic kidney disease, or unspecified chronic kidney disease; I25.10 Atherosclerotic heart disease of native coronary artery without angina pectoris; K21.9 Gastro-esophageal reflux disease without esophagitis; Z66 Do not resuscitate; Z51.5 Encounter for palliative care; Z95.5 Presence of coronary angioplasty implant and graft; Z85.3 Personal history of malignant neoplasm of breast; Z88.6 Allergy status to analgesic agent; Z91.041 Radiographic dye allergy status; Z91.013 Allergy to seafood; Z88.5 Allergy status to narcotic agent; Z79.01 Long term (current) use of anticoagulants; Z68.21 Body mass index [BMI] 21.0-21.9, adult
CPT/HCPCS: 36415; 36600; 70450; 71010; 74000; 74176; 80048; 80053; 80202; 81001; 82805; 82962; 83605; 83735; 83880; 84100; 84132; 84134; 84145; 84443; 84484; 85025; 85610; 85730; 86850; 86900; 86901; 86920; 87040; 87449; 87493; 87493-59; 87641; 92610-GN; 93005; 94640; 96374; 97161-GP; 97166-GO; 99291; A9270-GY; C9113; G0463; G8978-CN-GP; G8979-CM-GP; G8987-CL-GO; G8988-CK-GO; G8996-CK-GN; G8997-CK-GN; G8998-CK-GN; J0282; J0360; J1940; J2405; J2543; J3370; P9016; P9017; P9047; P9059